=== PATIENT | male | born 1955 | race Caucasian/White ===

== ENCOUNTER 2020-11-09 01:11 | Emergency (ER) | payer MEDICARE ==
[2020-11-09 01:29] VITALS: RESP 18
[2020-11-09] MEDS ORDERED: ONDANSETRON 4 MG/2 ML VIAL IVP STA (01:36)
[2020-11-09] MEDS ORDERED: SODIUM CHLORIDE 0.9% 1,000 ML IV ONE (01:36)
[2020-11-09] MEDS ORDERED: HYDROmorphone 1 MG/ML 1 ML SYRINGE IVP STA ×2 (01:36→03:43)
[2020-11-09 02:54] LABS: Basophils # (A) 0.1 k/uL (0-0.2); Basophils % (A) 1 %; Eosinophils # (A) 0.2 k/uL (0-0.7); Eosinophils % (A) 2 %; HCT 47.6 % (39.0-53.0); HGB 15.7 gm/dL (13.0-17.5); Lymphocytes # (A) 0.8 k/uL (1.0-4.8); Lymphocytes % (A) 9 %; MCH 33.6 pg (25.0-35.0); MCHC 33.1 g/dL (31.0-37.0); MCV 101.5 fL (80.0-100.0); Macrocytosis Slight; Mean Platelet Volume 7.3; Monocytes # (A) 0.4 k/uL (0-1.0); Monocytes % (A) 4 %; Neutrophils # (A) 7.5 k/uL (1.3-7.7); Neutrophils % (A) 84 %; Platelet Count 217 k/uL (150-450); RBC 4.68 m/uL (4.30-5.90); RDW 13.1 % (11.5-15.5); WBC 8.9 k/uL (3.8-10.6)
[2020-11-09 03:08] LABS: ALT 24 U/L (4-49); AST 32 U/L (17-59); African American GFR (CKD) >90 (>60 ml/min/1.73 sqM); Albumin 4.5 g/dL (3.5-5.0); Alkaline Phosphatase 65 U/L (38-126); Anion Gap 9 mmol/L; Blood Urea Nitrogen 14 mg/dL (9-20); Calcium 9.7 mg/dL (8.4-10.2); Carbon Dioxide 24 mmol/L (22-30); Chloride 102 mmol/L (98-107); Glucose 160 mg/dL (74-99); Lipase 205 U/L (23-300); Non-African American GFR(CKD) 86 (>60 ml/min/1.73 sqM); Potassium 4.1 mmol/L (3.5-5.1); Sodium 135 mmol/L (137-145); Total Bilirubin 0.6 mg/dL (0.2-1.3); Total Protein 7.7 g/dL (6.3-8.2)
[2020-11-09 03:15] LABS: Bacteria,Urine Rare /hpf; Mucus,Urine Many /hpf; WBC,Urine 59 /hpf (0-5)
--- NOTE | 2020-11-09 03:16 | CT ---
EXAM: CT Abdomen and Pelvis Without Intravenous Contrast CLINICAL HISTORY: ITS.REASON CT Reason: Right flank pain/hematuria/urinary retention TECHNIQUE: Axial computed tomography images of the abdomen and pelvis without intravenous contrast. CTDI is 13.97 mGy and DLP is 805.1 mGy-cm. This CT exam was performed using one or more of the following dose reduction techniques: automated exposure control, adjustment of the mA and/or kV according to patient size, and/or use of iterative reconstruction technique. COMPARISON: No relevant prior studies available. FINDINGS: Lung bases: Unremarkable. No mass. No consolidation. Mediastinum: 3 cm hiatal hernia. ABDOMEN: Liver: Unremarkable. Gallbladder and bile ducts: Unremarkable. No calcified stones. No ductal dilation. Pancreas: Unremarkable. No ductal dilation. Spleen: Unremarkable. No splenomegaly. Adrenals: Unremarkable. No mass. Kidneys and ureters: There is a 6 x 6.5 cm oval mass versus complex cyst in the mid right kidney. No ureterolithiasis is seen. Several additional 2-3 cm structures are seen with fluid density centrally in both kidneys presumably cysts. Consider contrast-enhanced examination for further characterization. No hydronephrosis. Stomach and bowel: Unremarkable. No obstruction. No mucosal thickening. PELVIS: Appendix: Normal appendix and an unremarkable bowel gas pattern. No acute inflammatory process is seen involving the bowel. Bladder: There is hyperdense material consistent with blood filling the right renal pelvis as well as blood throughout a partially distended urinary bladder which is decompressed by Espinoza catheter. No stones. Reproductive: Unremarkable as visualized. ABDOMEN and PELVIS: Intraperitoneal space: Unremarkable. No free air. No significant fluid collection. Bones/joints: Moderate degenerative changes throughout the lumbar spine. No acute fracture or subluxation is seen. 22 scoliosis. Soft tissues: Unremarkable. Vasculature: Mildly calcified moderate calcified but nondilated abdominal aorta. Lymph nodes: Unremarkable. No enlarged lymph nodes. IMPRESSION: 1. There is hyperdense material consistent with blood filling the right renal pelvis as well as blood throughout a partially distended urinary bladder which is decompressed by Espinoza catheter. 2. There is a 6 x 6.5 cm oval mass versus complex cyst in the mid right kidney. No ureterolithiasis is seen. Several additional 2-3 cm structures are seen with fluid density centrally in both kidneys presumably cysts. Consider contrast-enhanced examination for further characterization.
[2020-11-09 03:20] LABS: Appearance,Urine Turbid (Clear); Color,Urine Red
[2020-11-09 03:20] LABS: Prothrombin Time 10.3 sec (9.0-12.0)
[2020-11-09 03:21] LABS: RBC,Urine >182 /hpf (0-5)
--- NOTE | 2020-11-09 04:04 | ED ---
General Adult HPI - General Chief complaint: Urogenital Stated complaint: Poss Kidney Stone Time Seen by Provider: 11/09/20 01:24 Source: patient, EMS Mode of arrival: EMS Limitations: no limitations - History of Present Illness Initial comments: 65 -year-old male patient presents to the emergency department today for evaluation of urinary retention, right flank pain, hematuria. Patient states that he has been having right flank pain for the last several months. States he thought it was a pulled muscle. States today the pain worsens significantly. States this morning he did have bloody urine, states he did pass a blood clot. States he is now having pain in his suprapubic abdomen and has been unable to urinate since this morning. Denies any fever or chills. States he is having some vomiting and nausea. Denies any constipation or diarrhea. Denies history of urologic surgery. Denies history of kidney stones. Patient denies any recent rash, cough, shortness of breath, chest pain, diarrhea, constipation, numbness, tingling, dizziness, weakness, headache, visual changes, or any other complaints. - Related Data Previous Rx's Medication Instructions Recorded HYDROcodone/APAP 5-325MG [[place] 5] 1 each PO Q6HR PRN #12 tab 11/09/20 Allergies Allergy/AdvReac Type Severity Reaction Status Date / Time No Known Allergies Allergy Verified 11/09/20 01:30 Review of Systems ROS Statement: Those systems with pertinent positive or pertinent negative responses have been documented in the HPI. ROS Other: All systems not noted in ROS Statement are negative. Past Medical History Additional Past Medical History / Comment(s): brain aneurysm History of Any Multi-Drug Resistant Organisms: None Reported Past Surgical History: Unable to Obtain Past Psychological History: No Psychological Hx Reported Smoking Status: Current every day smoker Past Alcohol Use History: Daily Past Drug Use History: None Reported General Exam Limitations: no limitations General appearance: alert, in no apparent distress, other (Physical well- developed, well-nourished adult male patient in mild distress related to pain. Vital signs upon presentation are temperature 97.7F, pulse 74, respirations 18, blood pressure 155/97, pulse ox 99% on room air.) ENT exam: Present: normal exam, normal oropharynx, mucous membranes moist Respiratory exam: Present: normal lung sounds bilaterally. Absent: respiratory distress, wheezes, rales, rhonchi, stridor Cardiovascular Exam: Present: regular rate, normal rhythm, normal heart sounds. Absent: systolic murmur, diastolic murmur, rubs, gallop, clicks GI/Abdominal exam: Present: soft, tenderness (suprapubic), normal bowel sounds. Absent: distended, guarding, rebound, rigid Back exam: Present: normal inspection, CVA tenderness (R). Absent: CVA tenderness (L) Neurological exam: Present: alert, oriented X3, CN II-XII intact Psychiatric exam: Present: normal affect, normal mood Skin exam: Present: warm, dry, intact, normal color. Absent: rash Course Vital Signs 11/09/20 11/09/20 01:25 04:05 Temperature 97.7 F Pulse Rate 74 82 Respiratory 18 18 Rate Blood Pressure 155/97 150/107 O2 Sat by Pulse 99 98 Oximetry Medical Decision Making - Medical Decision Making 65 year-old male patient presents to the emergency department for evaluation of hematuria, urinary retention, and right flank pain. Flank pain for months. Hematuria and urinary retention since this morning. Physical examination revealed right CVA tenderness and suprapubic tenderness. Espinoza catheter was inserted after bladder scan showed 150 mL of fluid. He had output around 800 milliliters of grossly bloody urine. Labs were obtained, hemoglobin normal. A CT abdomen and pelvis without contrast was obtained and showed a 6 x 6.5 cm complex cyst versus mass in the right kidney. He had other multiple 2-3 cm cyst and bilateral kidneys. Patient was given IV fluids, pain medication, nausea medication. Upon re-evaluation he does report improvement in symptoms. Espinoza cathter is draining. He will be discharged to follow up with the urologist for evaluation as soon as possible. Instructed to follow up with the primary care physician for recheck in 1-2 days. Return parameters discussed in detail. He verbalizes understanding and agrees with this plan. Case discussed with my attending Dr. Ferrer. - Lab Data Result diagrams: 11/09/20 02:42 11/09/20 02:42 Lab Results 11/09/20 11/09/20 11/09/20 Range/Units 02:27 02:42 02:42 WBC 8.9 (3.8-10.6) k/uL RBC 4.68 (4.30-5.90) m/uL Hgb 15.7 (13.0-17.5) gm/dL Hct 47.6 (39.0-53.0) % MCV 101.5 H (80.0-100.0) fL MCH 33.6 (25.0-35.0) pg MCHC 33.1 (31.0-37.0) g/dL RDW 13.1 (11.5-15.5) % Plt Count 217 (150-450) k/uL MPV 7.3 Neutrophils % 84 % Lymphocytes % 9 % Monocytes % 4 % Eosinophils % 2 % Basophils % 1 % Neutrophils # 7.5 (1.3-7.7) k/uL Lymphocytes # 0.8 L (1.0-4.8) k/uL Monocytes # 0.4 (0-1.0) k/uL Eosinophils # 0.2 (0-0.7) k/uL Basophils # 0.1 (0-0.2) k/uL Macrocytosis Slight PT (9.0-12.0) sec INR (<1.2) APTT (22.0-30.0) sec Sodium 135 L (137-145) mmol/L Potassium 4.1 (3.5-5.1) mmol/L Chloride 102 (98-107) mmol/L Carbon Dioxide 24 (22-30) mmol/L Anion Gap 9 mmol/L BUN 14 (9-20) mg/dL Creatinine 0.92 (0.66-1.25) mg/dL Est GFR (CKD-EPI)AfAm >90 (>60 ml/min/1.73 sqM) Est GFR (CKD-EPI)NonAf 86 (>60 ml/min/1.73 sqM) Glucose 160 H (74-99) mg/dL Calcium 9.7 (8.4-10.2) mg/dL Total Bilirubin 0.6 (0.2-1.3) mg/dL AST 32 (17-59) U/L ALT 24 (4-49) U/L Alkaline Phosphatase 65 (38-126) U/L Total Protein 7.7 (6.3-8.2) g/dL Albumin 4.5 (3.5-5.0) g/dL Lipase 205 (23-300) U/L Urine Color Red Urine Appearance Turbid (Clear) Urine RBC >182 H (0-5) /hpf Urine WBC 59 H (0-5) /hpf Urine Bacteria Rare H (None) /hpf Urine Mucus Many H (None) /hpf 11/09/20 Range/Units 02:42 WBC (3.8-10.6) k/uL RBC (4.30-5.90) m/uL Hgb (13.0-17.5) gm/dL Hct (39.0-53.0) % MCV (80.0-100.0) fL MCH (25.0-35.0) pg MCHC (31.0-37.0) g/dL RDW (11.5-15.5) % Plt Count (150-450) k/uL MPV Neutrophils % % Lymphocytes % % Monocytes % % Eosinophils % % Basophils % % Neutrophils # (1.3-7.7) k/uL Lymphocytes # (1.0-4.8) k/uL Monocytes # (0-1.0) k/uL Eosinophils # (0-0.7) k/uL Basophils # (0-0.2) k/uL Macrocytosis PT 10.3 (9.0-12.0) sec INR 1.0 (<1.2) APTT 18.0 L (22.0-30.0) sec Sodium (137-145) mmol/L Potassium (3.5-5.1) mmol/L Chloride (98-107) mmol/L Carbon Dioxide (22-30) mmol/L Anion Gap mmol/L BUN (9-20) mg/dL Creatinine (0.66-1.25) mg/dL Est GFR (CKD-EPI)AfAm (>60 ml/min/1.73 sqM) Est GFR (CKD-EPI)NonAf (>60 ml/min/1.73 sqM) Glucose (74-99) mg/dL Calcium (8.4-10.2) mg/dL Total Bilirubin (0.2-1.3) mg/dL AST (17-59) U/L ALT (4-49) U/L Alkaline Phosphatase (38-126) U/L Total Protein (6.3-8.2) g/dL Albumin (3.5-5.0) g/dL Lipase (23-300) U/L Urine Color Urine Appearance (Clear) Urine RBC (0-5) /hpf Urine WBC (0-5) /hpf Urine Bacteria (None) /hpf Urine Mucus (None) /hpf - Radiology Data Radiology results: report reviewed, image reviewed Disposition Clinical Impression: Right kidney mass, Hematuria, Urinary retention Disposition: HOME SELF-CARE Condition: Good Instructions (If sedation given, give patient instructions): Urinary Retention in Men (ED), Espinoza Catheter Placement and Care (ED), Hematuria (ED) Additional Instructions: Increase fluids. Do not take aspirin or ibuprofen. Follow-up with urologist for further evaluation as soon as possible call first thing in the morning for an appointment. Return for any new, worsening, or concerning symptoms. Prescriptions: HYDROcodone/APAP 5-325MG [[place] 5] 1 each PO Q6HR PRN #12 tab PRN Reason: Pain Is patient prescribed a controlled substance at d/c from ED?: No Referrals: Gabriela Gaines MD [Primary Care Provider] - 1-2 days Indio Yu MD [STAFF PHYSICIAN] - 1-2 days Time of Disposition: 04:46
[2020-11-09] MEDS ORDERED: ACET/COD 300 MG/30 MG STARTER PACK 6 TAB BTL PO STA (04:46)
[2020-11-09 06:30] VITALS: BP 151/98; PULSE 85; TEMP 98
== END 2020-11-09 05:58 | disposition home or self-care (01) ==
LOC: EC 01:11
DX: N28.89 Other specified disorders of kidney and ureter (principal); F17.200 Nicotine dependence, unspecified, uncomplicated
CPT/HCPCS: 36415; 80053; 83690; 85025; 85610; 85730; 81001; 87086; 74176; 99284; 96374; 96375; 96376; 96361; J2405; J1170

== ENCOUNTER 2020-11-10 11:41 | Emergency (ER) | payer MEDICARE ==
[2020-11-10 11:47] VITALS: TEMP 98.2
--- NOTE | 2020-11-10 12:17 | ED ---
General Adult HPI - General Chief complaint: Urogenital Stated complaint: revisit - blood in urine Time Seen by Provider: 11/10/20 11:45 Source: patient, RN notes reviewed, old records reviewed Mode of arrival: ambulatory Limitations: no limitations - History of Present Illness Initial comments: This is a 65-year-old male who presents emergency Department complaining that he feels like he has to urinate but is unable to. Patient states he came in yesterday because he has had blood in his urine and he was having right flank pain for the last few months. Patient had a catheter placed yesterday but he states this morning stopped producing any urine and the pain began and has gotten progressively worse. Patient states he has pain in the suprapubic region. Patient denies any fever chills. Patient denies any other symptoms at this time. - Related Data Home Medications Medication Instructions Recorded Confirmed HYDROcodone/APAP 5-325MG [[place] 5] 1 tab PO Q6HR PRN 11/10/20 11/10/20 Allergies Allergy/AdvReac Type Severity Reaction Status Date / Time No Known Allergies Allergy Verified 11/10/20 12:22 Review of Systems ROS Statement: Those systems with pertinent positive or pertinent negative responses have been documented in the HPI. ROS Other: All systems not noted in ROS Statement are negative. Past Medical History Additional Past Medical History / Comment(s): brain aneurysm , kidney mass ,sepsis History of Any Multi-Drug Resistant Organisms: None Reported Past Surgical History: Orthopedic Surgery Past Psychological History: No Psychological Hx Reported Smoking Status: Current every day smoker Past Alcohol Use History: Daily Past Drug Use History: None Reported General Exam - General Exam Comments Initial Comments: GENERAL: Patient is well-developed and well-nourished. Patient is nontoxic and well- hydrated and is in moderate distress. ENT: Neck is soft and supple. No significant lymphadenopathy is noted. Oropharynx is clear. Moist mucous membranes. Neck has full range of motion without eliciting any pain. EYES: The sclera were anicteric and conjunctiva were pink and moist. Extraocular movements were intact and pupils were equal round and reactive to light. Eyelids were unremarkable. PULMONARY: Unlabored respirations. Good breath sounds bilaterally. No audible rales rhonchi or wheezing was noted. CARDIOVASCULAR: There is a regular rate and rhythm without any murmurs gallops or rubs. ABDOMEN: Soft and nontender with normal bowel sounds. SKIN: Skin is clear with no lesions or rashes and otherwise unremarkable. NEUROLOGIC: Patient is alert and oriented x3. Cranial nerves II through XII are grossly intact. Motor and sensory are also intact. Normal speech, volume and content. Symmetrical smile. MUSCULOSKELETAL: Normal extremities with adequate strength and full range of motion. LYMPHATICS: No significant lymphadenopathy is noted PSYCHIATRIC: Normal psychiatric evaluation. Limitations: no limitations Course Vital Signs 11/10/20 11:43 Temperature 98.2 F Pulse Rate 96 Respiratory 20 Rate Blood Pressure 144/67 O2 Sat by Pulse 95 Oximetry Medical Decision Making - Medical Decision Making Catheter was irrigated and clots came on the patient was able to have good urinary flow. At this point and the patient refuses any lab work or IV. I spoke with because because want to see the patient in the office tomorrow. Patient is aware patient states a follow-up tomorrow. Disposition Clinical Impression: Urinary retention, Hematuria, Kidney mass Disposition: HOME SELF-CARE Is patient prescribed a controlled substance at d/c from ED?: No Referrals: Indio Yu MD [STAFF PHYSICIAN] - 11/11/20 Time of Disposition: 12:46
[2020-11-10 12:57] VITALS: BP 157/78; PULSE 78; RESP 16
== END 2020-11-10 12:56 | disposition home or self-care (01) ==
LOC: EC 11:41
DX: N28.89 Other specified disorders of kidney and ureter (principal); F17.200 Nicotine dependence, unspecified, uncomplicated
CPT/HCPCS: 99283

== ENCOUNTER → 2020-11-19 | Outpatient (CLI) | payer MEDICARE ==
--- NOTE | 2020-11-19 14:39 | CT ---
EXAMINATION TYPE: CT abdomen pelvis wo/w con DATE OF EXAM: 11/19/2020 COMPARISON: 11/09/2020 HISTORY: Hematuria, Rt sided renal mass CT DLP: 2772 mGycm Automated exposure control for dose reduction was used. CONTRAST: Performed without and with IV Contrast, patient injected with 100 mL of Isovue 300. Images obtained from the diaphragm to the floor the pelvis without and with IV contrast. There is ora l contrast. FINDINGS: Lung bases are clear. There is no pleural effusion. Heart size is normal. There is no pericardial eff usion. Liver spleen stomach pancreas gallbladder appear normal. The bile ducts are not dilated. There is no adrenal mass. There is a rounded 6.3 cm sharply marginated mass involving the anterior upper pole right kidney. Thi s has mixed attenuation and shows mild enhancement with contrast. The lateral aspect of the mass has lower attenuation and could be partly cystic. There is 2.5 cm simple cortical cyst at the upper pole right kidney. There is 3.3 cm cortical cyst lateral left kidney. There is no hydronephrosis. Ureters are not dilated. Delayed images show normal renal excretion. There is no retroperitoneal adenopathy. The bladder distends smoothly. There is no inguinal hernia. There is no free fluid in the pelvis. I s ee no pelvic mass. There is normal enhancement of the inferior vena cava and the renal veins. The lumbar vertebra have n ormal alignment. There is multilevel mild vacuum disc. There is no compression fracture. The bony pel vis appears intact. The hip joints are intact. There is no mesenteric edema. There is no ascites or free air. There is no bowel obstruction. There i s no evidence of appendicitis. Appendix appears normal and is medial. IMPRESSION: Sharply marginated rounded enhancing predominantly solid right renal mass suggestive of primary renal tumor. Mass not changed in size compared to old exam. Follow-up recommended.
== END | disposition home or self-care (01) ==
LOC: RADCTMAIN 10:40
PROVIDERS: ATTEND Urology
DX: N28.89 Other specified disorders of kidney and ureter (principal)
CPT/HCPCS: 74178; Q9967

== ENCOUNTER → 2020-12-15 | Outpatient (CLI) | payer MEDICARE ==
--- NOTE | 2020-12-15 11:39 | XR ---
EXAMINATION TYPE: XR chest 2V DATE OF EXAM: 12/15/2020 COMPARISON: NONE TECHNIQUE: PA and lateral views submitted. HISTORY: Presurgical FINDINGS: The lungs are clear and there is no pneumothorax, pleural effusion, or focal pneumonia. Hyperinflat ion. Hypertrophic and degenerative change of the spine. IMPRESSION: 1. No acute process.
[2020-12-15 11:43] LABS: Basophils # (A) 0.1 k/uL (0-0.2); Basophils % (A) 1 %; Eosinophils # (A) 0.2 k/uL (0-0.7); Eosinophils % (A) 3 %; HCT 50.1 % (39.0-53.0); Lymphocytes # (A) 1.1 k/uL (1.0-4.8); Lymphocytes % (A) 20 %; MCH 33.2 pg (25.0-35.0); MCHC 31.9 g/dL (31.0-37.0); MCV 104.1 fL (80.0-100.0); Macrocytosis Slight; Monocytes # (A) 0.4 k/uL (0-1.0); Monocytes % (A) 7 %; Neutrophils # (A) 3.8 k/uL (1.3-7.7); Neutrophils % (A) 68 %; Platelet Count 199 k/uL (150-450); RBC 4.81 m/uL (4.30-5.90); RDW 13.8 % (11.5-15.5); WBC 5.6 k/uL (3.8-10.6)
[2020-12-15 11:58] LABS: Appearance,Urine Clear (Clear); Bilirubin,Urine Negative (Negative); Blood,Urine Negative (Negative); Color,Urine Colorless; Glucose,Urine (UA) Negative (Negative); Ketones,Urine Negative (Negative); Leukocyte Esterase,Urine Negative (Negative); Nitrite,Urine Negative (Negative); Protein,Urine Negative (Negative); Specific Gravity,Urine 1.001 (1.001-1.035); Urobilinogen,Urine <2.0 mg/dL (<2.0)
[2020-12-15 11:59] LABS: ALT 22 U/L (4-49); AST 36 U/L (17-59); African American GFR (CKD) >90 (>60 ml/min/1.73 sqM); Alkaline Phosphatase 68 U/L (38-126); Anion Gap 11 mmol/L; Blood Urea Nitrogen 9 mg/dL (9-20); Calcium 10.1 mg/dL (8.4-10.2); Carbon Dioxide 24 mmol/L (22-30); Chloride 105 mmol/L (98-107); Glucose 81 mg/dL (74-99); Non-African American GFR(CKD) >90 (>60 ml/min/1.73 sqM); Potassium 4.4 mmol/L (3.5-5.1); Sodium 140 mmol/L (137-145); Total Bilirubin 1.1 mg/dL (0.2-1.3); Total Protein 8.2 g/dL (6.3-8.2)
== END | disposition home or self-care (01) ==
LOC: LABPAT 10:22
PROVIDERS: ATTEND Urology
DX: Z01.818 Encounter for other preprocedural examination (principal); D41.01 Neoplasm of uncertain behavior of right kidney; R53.83 Other fatigue
CPT/HCPCS: 36415; 71046; 80053; 81003; 85025; 87086; 93005

== ENCOUNTER 2020-12-22 06:57 | Inpatient (IN) | payer MEDICARE ==
[2020-12-20 10:44] VITALS: BMI 24.4
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
[~2020-12-22 06:57] MED LIST: DEXAMETHASONE SOD PHOSPHATE 4 MG/ML 1 ML VIAL IV ONE
[2020-12-22] MEDS ORDERED: HYDROmorphone 0.5 MG/0.5 ML SYRINGE IVP PRN (07:00)
[2020-12-22] MEDS ORDERED: FAMOTIDINE 20 MG/2 ML VIAL IV PRN (07:00)
[2020-12-22] MEDS: LACTATED RINGERS 1,000 ML IV SCH ×3 (08:00→08:29)
[2020-12-22] MEDS ORDERED: MIDAZOLAM 2 MG/2 ML VIAL IVP ONE (08:14)
[2020-12-22] MEDS ORDERED: ROCURONIUM 10 MG/ML (5 ML VIAL) IV ONE (08:20)
[2020-12-22] MEDS ORDERED: WATER FOR INJECTION, STERILE 10 ML VIAL IV ONE (08:20)
[2020-12-22] MEDS ORDERED: LIDOCAINE 1% INJ 10MG/ML (20 ML MDV) ONE (08:20)
[2020-12-22] MEDS ORDERED: NEOSTIGMINE 1 MG/ML 10 ML VIAL ONE (08:20)
[2020-12-22] MEDS ORDERED: PROPOFOL 10 MG/ML 20 ML VIAL IV ONE (08:20)
[2020-12-22] MEDS ORDERED: MIDAZOLAM 2 MG/2 ML VIAL ONE (08:20)
[2020-12-22] MEDS ORDERED: fentaNYL (PF) 50 MCG/ML 2 ML AMP ONE (08:20)
[2020-12-22] MEDS ORDERED: HYDROmorphone (PF) 1 MG/ML ONE (08:20)
[2020-12-22] MEDS ORDERED: SUCCINYLCHOLINE CHLORIDE 100 MG/5 ML SYR IV ONE (08:20)
[2020-12-22] MEDS ORDERED: GLYCOPYRROLATE 0.2 MG/ML 2 ML VIAL ONE (08:20)
[2020-12-22] MEDS ORDERED: ePHEDrine SULFATE/0.9% NACL/PF 50 MG/5 ML SYRINGE IV ONE (08:20)
[2020-12-22] MEDS: ONDANSETRON 4 MG/2 ML VIAL IVP ONE ×2 (08:23→14:08)
[2020-12-22] MEDS ORDERED: ROPIVACAINE 250 MG, HYDROMORPHONE (PF) 5 MG in SODIUM CHLORIDE 0.9% 200 ML EPIDURAL PRN (09:27)
[2020-12-22] MEDS ORDERED: NALOXONE 0.4 MG/ML 1 ML VIAL IV PRN (09:27)
[2020-12-22] MEDS ORDERED: LACTATED RINGERS 1,000 ML IV ONE (10:23)
--- NOTE | 2020-12-22 10:24 | P.ANPRN ---
Procedure Note - Anesthesia - Epidural/Spinal Epidural Continuous Time Out Performed: Yes Date of Procedure: 12/22/20 Procedure Start Time: :13 Procedure Stop Time: : Location of Patient: PreOp Indication: Acute Post-Operative Pain, Requested by Surgeon Sedation Type: Sedate with meaningful contact maintained Preparation: Sterile Dressing Position: Sitting Catheter: Indwelling Needle Guage: 18 Injectate: Test Dose Lidocaine1.5% w/1:200,000 epi Blood Aspirated: No Pain Paresthesia on Injection Noted: No Events: Uneventful and Well Tolerated (test dose given with no adverse reaction)
--- NOTE | 2020-12-22 10:55 | P.OP ---
Date of Procedure: 12/22/20 Preoperative Diagnosis: Right renal mass, right renal carcinoma Postoperative Diagnosis: Same Procedure(s) Performed: Right radical nephrectomy Anesthesia: GETA, epidural Surgeon: Nicholas Lynn Molder Fitting #1: Eron Razo Estimated Blood Loss (ml): 100 Pathology: other (Kidney) Condition: stable Disposition: PACU Indications for Procedure: The patient is 65. He presented [facility] emergency room with gross hematuria. Computed tomography scan showed a mass. He was sent to me. The mass was reviewed and found to be a solid mass in his right kidney. He is deep into the parenchyma. We discussed treatment options. He comes for a right radical nephrectomy left kidney appears to be good. His kidney function is normal Description of Procedure: Patient is brought to the operating suite. He is given a general endotracheal anesthesia proceeded by an epidural for perioperative pain control. Espinoza catheters introduced sterilely. He is prepped and draped sterilely. A right subcostal incision is made. I dissect down to the rectus and oblique fascias. The peritoneum was opened. The liver and omentum are inspected and are normal. The traction is created with the Bookwalter retractor. The colon is reflected medially. I then do a Dulce maneuver and reflect the duodenum medially. We retraction is created. Identify the gonadal vein which is taken between 2-0 silk ties. I identified the vena cava and March superiorly reflecting connective tissue off until I identified the renal vein. Then identify the renal artery and its one posterior branch and place a 2-0 silk ties around it. I then free the right renal vein up and placed 2-0 silk ties around it. I doubly ligate the proximal distal aspects. I then transect the renal vein. This allows me to approach the renal artery on the right side more appropriately. I then doubly ligate proximally and distally both the main artery and the posterior branch. I then transected. I then dissect the connective and lymph node tissue off the vena cava and reflect it with the kidney specimen. In September inferiorly and re-clamp the gonadal vein and then transected. I then clamped the ureter and transected. I then dissect posteriorly and elevated troponin's fascia off the posterior peritoneum as I marched laterally. I then moved superiorly above the right renal hilum and Hemoclip any tissue or adrenal veins off the cava a. In September inferiorly to the adrenal gland it is visually normal on computed tomography scan. I used hemoclips to control any bleeding. I then dissect the knee and tumor off the peritoneum taking a small amount of peritoneum as the tumor is stuck to it superiorly. Liver the kidney from the wound Bleeding was controlled with electrocautery and some suturing. There is no active bleeding for several minutes post nephrectomy. I then closed the right upper quadrant in 3 layers of #1 Vicryl the skin is stapled the patient is awake and returned recovery room good condition. Blood loss is approximately 100 mL. The patient tolerated the procedure well be placed in the hospital postoperatively.
[2020-12-22] MEDS ORDERED: fentaNYL (PF) 50 MCG/ML 2 ML AMP INTRATHECA ONE (11:05)
[2020-12-22] MEDS: DEXTROSE 5%-0.45% NACL 1,000 ML IV SCH ×2 (14:47→19:50)
[2020-12-22] MEDS ORDERED: diphenhydrAMINE 50 MG/ML 1 ML VIAL IVP PRN (18:53)
[2020-12-23] MEDS: DEXTROSE 5%-0.45% NACL 1,000 ML IV SCH ×2 (05:11→18:24)
--- NOTE | 2020-12-23 08:11 | P.PN ---
Subjective Progress Note Date: 12/23/20 Principal diagnosis: first post op day from a right radical nephrectomy. Uneventful evening. Pain under control. VSS. U/O good Wound ok, slight old blood lateral corner. Respirations nl, not tacycardic. Non tender abdomen. Stable POD #1 C/w epidural, ivf, clear liquid diet. Objective - Vital Signs Vital signs: Vital Signs Temp 98.9 F 12/23/20 07:27 Pulse 81 12/23/20 07:27 Resp 18 12/23/20 07:27 BP 126/72 12/23/20 07:27 Pulse Ox 96 12/23/20 07:27 Intake & Output 12/22/20 12/23/20 12/23/20 18:59 06:59 18:59 Intake Total 2155 Output Total 425 600 Balance 1730 -600 Weight 93 kg Intake: IV 2155 Output: Urine 325 600 Estimated Blood Loss 100 Other: Voiding Method Indwelling Catheter
--- NOTE | 2020-12-23 10:58 | P.PN ---
Progress Note - Text Progress Note Date: 12/23/20 (0910) Anesthesia Postop day 1 Status post radical nephrectomy with epidural Day 2 Patient seen and examined. Doing well without complaint. VAS 0 out of 10. No nausea vomiting or pruritus. Infusion currently caused. Patient has been picking at the dressing on his back. Pulled catheter out, ripped catheter, removed dressing. Objective: Vital signs reviewed Lungs: Good chest excursion Abdomen: Appears nondistended Other: Epidural Site Intact without induration. Dressing intact Neuro: No apparent motor block. Sensory within normal limits. Assessment: Status post radical nephrectomy postop day 1 Plan: Removed rest of dressing. Nurse notified of disconnected epidural
[2020-12-23] MEDS ORDERED: HYDROmorphone 1 MG/ML 1 ML SYRINGE IVP PRN (11:19)
[2020-12-23 11:20] LABS: HCT 43.8 % (39.0-53.0); MCH 33.2 pg (25.0-35.0); MCHC 31.9 g/dL (31.0-37.0); Macrocytosis Slight; Mean Platelet Volume 6.9; Platelet Count 192 k/uL (150-450); RBC 4.21 m/uL (4.30-5.90); RDW 13.7 % (11.5-15.5); WBC 10.9 k/uL (3.8-10.6)
[2020-12-23 11:37] LABS: African American GFR (CKD) 69 (>60 ml/min/1.73 sqM); Anion Gap 10 mmol/L; Blood Urea Nitrogen 17 mg/dL (9-20); Calcium 9.4 mg/dL (8.4-10.2); Carbon Dioxide 22 mmol/L (22-30); Chloride 102 mmol/L (98-107); Glucose 81 mg/dL (74-99); Non-African American GFR(CKD) 60 (>60 ml/min/1.73 sqM); Potassium 4.5 mmol/L (3.5-5.1); Sodium 134 mmol/L (137-145)
[2020-12-23] MEDS: HYDROcodone/APAP 5-325MG 1 EACH TAB PO PRN ×3 (13:17→23:50)
[2020-12-24] MEDS: DEXTROSE 5%-0.45% NACL 1,000 ML IV SCH ×2 (05:55→19:17)
[2020-12-24] MEDS: HYDROcodone/APAP 5-325MG 1 EACH TAB PO PRN ×3 (08:31→20:42)
--- NOTE | 2020-12-24 17:10 | P.PN ---
Progress Note - Text Progress Note Date: 12/24/20 No acute overnight events, pain is controlled. He is tolerating a diet, ambulating. Has not passed flatus. Abdomen soft and nontender, incision clean dry and intact A/P Postop day #2 status post right radical nephrectomy -Pain control -Discontinued Espinoza -Ambulate -Advance diet as tolerated
[2020-12-25] MEDS: DEXTROSE 5%-0.45% NACL 1,000 ML IV SCH ×2 (01:52→09:19)
[2020-12-25 07:23] VITALS: BP 146/92; PULSE 74; RESP 18; TEMP 98.8
--- NOTE | 2020-12-25 11:45 | P.DS ---
Providers Date of admission: 12/22/20 06:57 Attending physician: Nicholas Lynn Primary care physician: Gabriela Gaines [facility] Course: This is a 65-year-old male with history of right renal mass. He underwent open radical nephrectomy on December 22, please see op note dated 12/22 for surgery detail. He was admitted to the floor postoperatively. He accidentally discontinued his epidural on postop day #1, but his pain was controlled. His Espinoza catheter was removed on postoperative day #2. He was subsequently discharged home on postop day #3, at time of discharge was tolerating a diet, ambulating, pain well controlled. His abdominal exam was benign, and his in cision was clean dry and intact Plan - Discharge Summary Discharge Rx Participant: Yes New Discharge Prescriptions: New HYDROcodone/APAP 5-325MG [Embudo 5-325] 1 tab PO Q6HR PRN 3 Days #12 tab PRN Reason: Pain Discharge Medication List HYDROcodone/APAP 5-325MG [Embudo 5-325] 1 tab PO Q6HR PRN 3 Days #12 tab 12/25/20 [Rx] Patient Instructions/Handouts: Nephrectomy (DC) Activity/Diet/Wound Care/Special Instructions: No heavy lifting or straining You may shower, no baths If there is no drainage from your incision, you don't have to apply dressing Discharge Disposition: HOME SELF-CARE
== END 2020-12-25 12:19 | disposition home or self-care (01) | DRG 658 ==
LOC: 2ORMAIN 06:57 → 4SSUR 13:27
PROVIDERS: ADMIT Urology; ATTEND Urology
PROC: 0TT00ZZ Resection of Right Kidney, Open Approach (ICD-10-PCS; principal; 2020-12-22 08:30)
DX: C64.1 Malignant neoplasm of right kidney, except renal pelvis (principal); F17.200 Nicotine dependence, unspecified, uncomplicated; R31.0 Gross hematuria; I67.1 Cerebral aneurysm, nonruptured; G47.30 Sleep apnea, unspecified
CPT/HCPCS: 80048; 85027; 86850; 86900; 86901; 88307

== ENCOUNTER → 2021-10-28 | Outpatient (CLI) | payer MEDICARE ==
--- NOTE | 2021-10-28 10:13 | CT ---
EXAMINATION TYPE: CT chest wo con DATE OF EXAM: 10/28/2021 COMPARISON: CT abdomen pelvis 10/14/2021 HISTORY: Pulmonary nodule. Malignant neoplasm of right kidney CT DLP: 689 mGycm. Automated Exposure Control for Dose Reduction was Utilized. TECHNIQUE: CT scan of the thorax is performed without IV contrast. FINDINGS: Lack of intravenous contrast could compromise sensitivity. There are coronary artery calcifications present. Small hiatal hernia suspected. LUNGS: The lungs are grossly clear, there is no concerning parenchymal mass or nodule identified. C entrilobular emphysematous changes are present. There is no pleural effusion or pneumothorax seen. T he tracheobronchial tree is patent. MEDIASTINUM: Lack of IV contrast is noted to limit evaluation for mediastinal and especially hilar ad enopathy. There are no definitive greater than 1 cm hilar or mediastinal lymph nodes. No cardiomega ly or pericardial effusion is seen. OTHER: Post right nephrectomy changes noted. Probable cystic foci associated with the left kidney. Hicks spect a spinal curvature is present. IMPRESSION: Postop changes. No suspicious lung nodule.
== END | disposition home or self-care (01) ==
LOC: RADCTMAIN 08:31
PROVIDERS: ATTEND Urology
DX: C64.1 Malignant neoplasm of right kidney, except renal pelvis (principal)
CPT/HCPCS: 71250

== ENCOUNTER 2023-09-20 19:41 | Inpatient (IN) | payer MEDICARE ==
[2023-09-20 20:15] LABS: Basophils # (A) 0.1 k/uL (0-0.2); Basophils % (A) 1 %; Eosinophils # (A) 0.4 k/uL (0-0.7); Eosinophils % (A) 6 %; HCT 46.5 % (39.0-53.0); Lymphocytes # (A) 1.2 k/uL (1.0-4.8); Lymphocytes % (A) 18 %; MCH 34.1 pg (25.0-35.0); MCHC 34.3 g/dL (31.0-37.0); MCV 99.2 fL (80.0-100.0); Mean Platelet Volume 7.2; Monocytes # (A) 0.5 k/uL (0-1.0); Monocytes % (A) 8 %; Neutrophils # (A) 4.2 k/uL (1.3-7.7); Neutrophils % (A) 65 %; Platelet Count 236 k/uL (150-450); RBC 4.69 m/uL (4.30-5.90); RDW 12.3 % (11.5-15.5); WBC 6.5 k/uL (3.8-10.6)
--- NOTE | 2023-09-20 20:25 | CT ---
EXAM: CT Head Without Intravenous Contrast CLINICAL HISTORY: ITS.REASON CT Reason: Neuro deficit, acute, stroke suspected TECHNIQUE: Axial computed tomography images of the head/brain without intravenous contrast. CTDI is 49.1 mGy and DLP is 1142.6 mGy-cm. This CT exam was performed using one or more of the following dose reduction techniques: automated exposure control, adjustment of the mA and/or kV according to patient size, and/or use of iterative reconstruction technique. COMPARISON: No relevant prior studies available. FINDINGS: Brain: No intracranial hemorrhage. Chronic infarcts in the right hemisphere. Status post MCA aneurysm coiling on the right. Global parenchymal atrophy. Ventricles: Unremarkable. Bones/joints: Chronic appearing fracture deformities of the nasal bone. Soft tissues: Unremarkable. Sinuses: No acute sinusitis. Mastoid air cells: Unremarkable as visualized. IMPRESSION: 1. No acute intracranial abnormality.
[2023-09-20] MEDS: SODIUM CHLORIDE 0.9% 1,000 ML IV STA (20:28)
[2023-09-20 20:30] LABS: Prothrombin Time 10.9 sec (10.0-12.5)
[2023-09-20 20:37] LABS: Partial Thromboplastin Time 21.6 sec (22.0-30.0)
[2023-09-20 20:41] LABS: ALT 89 U/L (4-49); AST 72 U/L (17-59); African American GFR (CKD) 88 (>60 ml/min/1.73 sqM); Albumin 4.8 g/dL (3.5-5.0); Alcohol <10 mg/dL; Alkaline Phosphatase 176 U/L (38-126); Anion Gap 11 mmol/L; Blood Urea Nitrogen 9 mg/dL (9-20); Calcium 9.8 mg/dL (8.4-10.2); Carbon Dioxide 24 mmol/L (22-30); Chloride 94 mmol/L (98-107); Creatine Kinase 64 U/L (55-170); Glucose 74 mg/dL (74-99); Non-African American GFR(CKD) 76 (>60 ml/min/1.73 sqM); Potassium 4.4 mmol/L (3.5-5.1); Sodium 129 mmol/L (137-145); Total Bilirubin 0.9 mg/dL (0.2-1.3); Total Protein 8.3 g/dL (6.3-8.2)
--- NOTE | 2023-09-20 20:57 | CT ---
EXAM: CT Angiography Head With Intravenous Contrast CLINICAL HISTORY: ITS.REASON CT Reason: Neuro deficit, acute, stroke suspected TECHNIQUE: Axial computed tomographic angiography images of the head with intravenous contrast. CTDI is 10.7 mGy and DLP is 519 mGy-cm. This CT exam was performed using one or more of the following dose reduction techniques: automated exposure control, adjustment of the mA and/or kV according to patient size, and/or use of iterative reconstruction technique. MIP reconstructed images were created and reviewed. COMPARISON: No relevant prior studies available. FINDINGS: Right internal carotid artery: No acute findings. Intracranial segment is patent with no significant stenosis. No aneurysm. Right anterior cerebral artery: Unremarkable. No occlusion or significant stenosis. No aneurysm. Right middle cerebral artery: Status post distal right MCA aneurysm coiling. Artifact limits evaluation of this area. No occlusion or significant stenosis. Right posterior cerebral artery: Unremarkable. No occlusion or significant stenosis. No aneurysm. Right vertebral artery: Right vertebral artery terminates in PICA. Left internal carotid artery: No acute findings. Intracranial segment is patent with no significant stenosis. No aneurysm. Left anterior cerebral artery: Unremarkable. No occlusion or significant stenosis. No aneurysm. Left middle cerebral artery: Unremarkable. No occlusion or significant stenosis. No aneurysm. Left posterior cerebral artery: Unremarkable. No occlusion or significant stenosis. No aneurysm. Left vertebral artery: Unremarkable as visualized. Basilar artery: Unremarkable. No occlusion or significant stenosis. No aneurysm. IMPRESSION: No acute findings in the arteries of the head/brain. EXAM: CT Angiography Neck With Intravenous Contrast CLINICAL HISTORY: ITS.REASON CT Reason: Neuro deficit, acute, stroke suspected TECHNIQUE: Routine carotid CT angiography protocol was performed with intravenous contrast. NASCET criteria using the distal ICAs for comparison were used for evaluation of stenoses. CTDI is 10.7 mGy and DLP is 519 mGy-cm. This CT exam was performed using one or more of the following dose reduction techniques: automated exposure control, adjustment of the mA and/or kV according to patient size, and/or use of iterative reconstruction technique. MIP reconstructed images were created and reviewed. COMPARISON: None. FINDINGS: VASCULATURE: Right common carotid artery: Unremarkable. No occlusion or significant stenosis. No dissection. Right internal carotid artery: Atherosclerotic calcifications within the right ICA causing less than 50% stenosis. No dissection. Right vertebral artery: Unremarkable. No occlusion or significant stenosis. No dissection. Left common carotid artery: Unremarkable. No occlusion or significant stenosis. No dissection. Left internal carotid artery: Unremarkable. Extracranial segment is patent with no occlusion or significant stenosis. No dissection. Left vertebral artery: Unremarkable. No occlusion or significant stenosis. No dissection. NECK: Bones/joints: Moderate to severe degenerative spondylosis in the cervical spine. No acute fracture. Soft tissues: Unremarkable. Lung apices: Bronchial plugging and centrilobular groundglass in the right upper lobe. CAROTID STENOSIS REFERENCE USING NASCET CRITERIA: % ICA stenosis = (1 - narrowest ICA diameter/diameter of distal cervical ICA) x 100. Mild - <50% stenosis. Moderate - 50-69% stenosis. Severe - 70-94% stenosis. Near occlusion - 95-99% stenosis. Occluded - 100% stenosis. IMPRESSION: No acute findings in the arteries of the neck.
[2023-09-20] MEDS: ONDANSETRON 4 MG/2 ML VIAL IVP STA (21:16)
[2023-09-20] MEDS: ACETAMINOPHEN TAB 500 MG TAB PO STA (21:21)
--- NOTE | 2023-09-20 21:26 | XR ---
EXAM: XR chest 1V portable CLINICAL INDICATION:Male, 68 years old with history of altered mental status; [facility] COMPARISON: 2 view chest 10/14/2021 TECHNIQUE: Chest single view. FINDINGS: Lines/tubes/devices: EKG leads overlie the chest. No indwelling lines are seen. Cardiomediastinum: Cardiac silhouette appears normal in size. Partially calcified aorta. Incidental silhouette appears within normal limits. Vasculature: No increased pulmonary vasculature. Lungs/pleura: Mild diffuse interstitial coarsening and hyperinflation again noted, likely chronic lung changes. No acute consolidation, pleural effusion, or pneumothorax. No sizable pulmonary nodules detected; if nod ules are of concern, recommend correlation with findings of outpatient CT chest. Bones/soft tissues: No acute osseous pathology visualized. Mild degenerative changes of the spine with apex right curvatu re in the mid to inferior thoracic region. There are possibly some vascular calcifications in the rig ht neck. Regional soft tissues appear unremarkable for acute process. IMPRESSION: Overall stable exam, without evidence of acute cardiopulmonary disease.
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
[2023-09-20] MEDS: SODIUM CHLORIDE 0.9% 1,000 ML IV SCH (23:47)
[2023-09-20] MEDS: ASPIRIN 325 MG TAB PO STA (23:47)
[2023-09-21 08:43] LABS: Chol/HDL Ratio 2.41 Ratio; LDL Cholesterol,Calculated 78.7 mg/dL (0.0-131.0)
[2023-09-21] MEDS: CLOPIDOGREL 75 MG TAB PO SCH (09:28)
[2023-09-21] MEDS: ASPIRIN 325 MG TAB PO SCH (09:28)
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
[2023-09-21] MEDS: NICOTINE 21MG/24HR PATCH TRANSDERM SCH (14:59)
[2023-09-21] MEDS: HEPARIN SODIUM,PORCINE 5,000 UNIT/ML 1 ML VIAL SQ SCH (15:07)
[2023-09-21] MEDS: THIAMINE 100 MG TAB PO SCH (15:08)
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
--- NOTE | 2023-09-21 18:02 | CA ---
Transthoracic Echo Report Name: Yadiel Escamilla Age: 68 Gender: M : 1955 Exam Date: 09/21/2023 11:38 Exam Location: [facility] Ht (in): 70 Wt (lb): 180 Ordering Physician: Demarcus Jeffery MD Attending/Referring Phys: Physical Therapy Instructor John Carlos RDCS Procedure CPT: Indications: CVA Cardiac Hx: Technical Quality: Very technically difficult study Contrast 1: Definity Total Dose (mL): 3 Contrast 2: Total Dose (mL): MEASUREMENTS (Male / Female) Normal Values DOPPLER AV Peak Velocity 104.2 cm/s AV Peak Gradient 4.3 mmHg AV Mean Velocity 71.7 cm/s AV Mean Gradient 2.2 mmHg AV Velocity Time Integral 19.5 cm LVOT Peak Velocity 47.0 cm/s LVOT Peak Gradient 0.9 mmHg LVOT Velocity Time Integral 19.9 cm MV Area PHT 3.8 cm??? Mitral E Point Velocity 50.1 cm/s Mitral A Point Velocity 74.0 cm/s Mitral E to A Ratio 0.7 MV Deceleration Time 199.6 ms PV Peak Velocity 99.1 cm/s PV Peak Gradient 3.9 mmHg FINDINGS Left Ventricle By apical views Left ventricular ejection fraction is estimated at 50-55 %. Normal left ventricular wall motion. Right Ventricle Right ventricle not well visualized. Right Atrium Right atrium not well visualized. Left Atrium Left atrium not well visualized. Mitral Valve Mitral valve not well visualized. Aortic Valve Aortic valve not well visualized. Tricuspid Valve Tricuspid valve not well visualized. Pulmonic Valve Pulmonic valve not well visualized. Pericardium No pericardial effusion. Aorta Aortic root and proximal ascending aorta not well visualized. CONCLUSIONS Very limited study, poor acoustic windows. Poorly visualized endocardium and poorly visualized intracardiac valves Normal LV systolic function Previewed by: Dr. Perez Mondragon MD (Electronically Signed) Final Date: 21 September 2023 18:01
[2023-09-21] MEDS: ATORVASTATIN 80 MG TAB PO SCH (20:21)
[2023-09-22 09:17] LABS: Basophils # (A) 0.1 k/uL (0-0.2); Basophils % (A) 1 %; Eosinophils # (A) 0.2 k/uL (0-0.7); Eosinophils % (A) 4 %; HCT 49.1 % (39.0-53.0); HGB 15.8 gm/dL (13.0-17.5); Lymphocytes % (A) 18 %; MCH 32.5 pg (25.0-35.0); MCHC 32.1 g/dL (31.0-37.0); MCV 101.3 fL (80.0-100.0); Mean Platelet Volume 7.3; Monocytes # (A) 0.2 k/uL (0-1.0); Monocytes % (A) 4 %; Neutrophils # (A) 3.7 k/uL (1.3-7.7); Neutrophils % (A) 70 %; Platelet Count 218 k/uL (150-450); RBC 4.85 m/uL (4.30-5.90); RDW 12.3 % (11.5-15.5); WBC 5.3 k/uL (3.8-10.6)
[2023-09-22 09:30] LABS: African American GFR (CKD) 82 (>60 ml/min/1.73 sqM); Anion Gap 10 mmol/L; Blood Urea Nitrogen 12 mg/dL (9-20); Calcium 9.7 mg/dL (8.4-10.2); Carbon Dioxide 25 mmol/L (22-30); Chloride 96 mmol/L (98-107); Glucose 145 mg/dL (74-99); Non-African American GFR(CKD) 71 (>60 ml/min/1.73 sqM); Potassium 4.2 mmol/L (3.5-5.1); Sodium 131 mmol/L (137-145)
--- NOTE | 2023-09-22 10:15 | CT ---
EXAMINATION TYPE: CT brain wo con CT DLP: 1168 mGycm, Automated exposure control for dose reduction was used. DATE OF EXAM: 09/22/2023 8:50 AM COMPARISON: CT brain 09/20/2023. CLINICAL INDICATION:Male, 68 years old with history of left facial droop, dysarthria. CVA, left faci al droop TECHNIQUE: Brain: Axial CT images of the brain were obtained with coronal and sagittal reformats created and rev iewed. Contrast used: None. Oral contrast used: None. FINDINGS: Extra-axial spaces: No abnormal extra-axial fluid collections. Ventricular system: Ventricles appear dilated in proportion to the degree of cerebral atrophy. Cavum septum pellucidum et vergae redemonstrated. Cerebral parenchyma: No increased attenuation to suggest acute intraparenchymal hemorrhage. The gra y-white matter interface appears maintained, without evidence to suggest acute territorial infarction . Moderate generalized atrophy. Scattered hypoattenuating areas are seen within the cerebral white matter, nonspecific but most often seen with chronic microvascular ischemic changes; mild/moderate in degree. Similar appearing areas of hypoattenuation with brain volume loss in the right frontal lobe and perisylvian frontal and parietal lobes compared to prior, consistent with encephalomalacia from remote insults; radiodensity redemonstrated at the anterior aspect of the right middle cranial fossa, likely related to previous aneurysm coiling. Remote infarct right occipital and posterior temporal l obe, similar to previous. Cerebellum: No acute abnormality. Mass effect: No evidence of mass effect or midline shift. Intracranial vasculature: Atherosclerotic calcifications of the larger arteries near the skull base. Soft tissues: No acute or concerning abnormality. Visualized orbits: Orbital contents appear grossly intact. Calvarium/osseous structures: No evidence of acute calvarial fracture. Deformity of the nasal bones l ikely reflects chronic injury. Paranasal sinuses and mastoid air cells: Mild mucosal thickening in the maxillary sinuses. No signifi cant paranasal sinus fluid. Mastoid air cells are clear. MRI is more sensitive for detecting acute processes such as infarct, and may be considered if clinica lly warranted. IMPRESSION: Overall stable intracranial findings. No CT evidence of an acute intracranial abnormality.
--- NOTE | 2023-09-22 13:26 | P.PN ---
Subjective Progress Note Date: 09/22/23 68-year-old male with a history of a right middle cerebral artery aneurysm with coiling about 13 years ago also history of right nephrectomy for renal cell carcinoma also a smoker and drinker who states he had the onset around 5 PM this evening of left-sided facial droop some slurred speech and some tingling and numbness to his right hand. No headache no blurry vision no fever chills nausea vomiting sweats or other symptoms. Patient has history of right MCA aneurysm status post coiling 2009 initially was at [place] on any was having headache for 2 weeks then he was shipped to [facility] in which he had a coil. He was adamant that he does not have any history of stroke per the patient. Workup completed in ED reveals; CBC with differential is unremarkable Lipid panel is triglyceride 104, cholesterol 170, LDL 78 and HDL 70 In our ED the patient had NIH stroke scale of 3 in the points were 1 for aphasia 14 the sensory and [address] of the head is reported as no acute intracranial abnormality. I personally reviewed the CT of the head and the patient's has chronic to ?subacute changes over the right parietal temporal and the right frontal adjacent to the right ventricle are anterior horn. CT angiography head was reported as no acute finding and the arteries of the head/brain. While CT angiography of the neck was reported as no acute finding in the arteries of the neck. A code stroke was activated. The ED physician notified he spoke with Dr. Black and he recommended to avoid thrombolytic because of patient history of coil and history of cancer 09/22/2023 Patient is seen and evaluated in room at bedside; eager to be discharged home Vital signs are reviewed reveal a temperature of 97.3, pulse 96, respirations 17 and blood pressure 113/86 with O2 saturation 98% on room air Blood work reveals WBC of 5.3, hemoglobin of 15.8 and platelet count of 218, sodium 131, potassium 4.2, sodium is improved from 129 yesterday Patient has been evaluated by neurology with possible recommendation for MRI if compatible; records are awaited from [facility] --Patient has been placed on aspirin, Lipitor and Plavix -- Remains on thiamine 100 mg daily given history of alcohol abuse -DVT prophylaxis with heparin 5000 units SQ every 12 hours Objective - Vital Signs Vital signs: Vital Signs Temp 97.3 F L 09/22/23 08:00 Pulse 96 09/22/23 08:00 Resp 17 09/22/23 08:00 BP 113/86 09/22/23 08:00 Pulse Ox 98 09/22/23 08:00 FiO2 Intake & Output 09/21/23 09/22/23 09/22/23 18:59 06:59 18:59 Intake Total 220 Output Total 800 Balance -580 Weight 81.2 kg Intake: Oral 220 Output: Urine 800 Other: Voiding Method Toilet Toilet Toilet # Voids 1 - Exam General appearance: alert, anxious Head exam: Present: other (Facial asymmetry compared to the right) Eye exam: Present: normal appearance, PERRL, EOMI. Absent: scleral icterus, conjunctival injection, periorbital swelling ENT exam: Present: other (Left facial asymmetry is noted slurred speech noted) Neck exam: Present: normal inspection, full ROM, other (No stridor JVD or bruits). Absent: tenderness, meningismus, lymphadenopathy Respiratory exam: Present: normal lung sounds bilaterally. Absent: respiratory distress, wheezes, rales, rhonchi, stridor Cardiovascular Exam: Present: regular rate, normal rhythm, normal heart sounds. Absent: systolic murmur, diastolic murmur, rubs, gallop, clicks GI/Abdominal exam: Present: soft, normal bowel sounds. Absent: distended, tenderness, guarding, rebound, rigid, bruit, pulsatile mass Extremities exam: Present: normal inspection, full ROM, normal capillary refill. Absent: tenderness, pedal edema, joint swelling, calf tenderness Neurological exam: Present: alert, oriented X3, motor sensory deficit. Absent: CN II-XII intact Skin exam: Present: warm, dry, intact, normal color. Absent: rash - Labs CBC & Chem 7: 09/22/23 08:17 09/22/23 08:17 Labs: Abnormal Lab Results - Last 24 Hours (Table) 09/22/23 09/22/23 Range/Units 08:17 08:17 MCV 101.3 H (80.0-100.0) fL Sodium 131 L (137-145) mmol/L Chloride 96 L (98-107) mmol/L Glucose 145 H (74-99) mg/dL Assessment and Plan Assessment: 1. Acute versus subacute CVA --Patient presenting with left facial droop and dysarthria with left hand numbness -- CT of the head was reviewed by neurology and felt to have changes over the right temporal and frontal lobe which could be subacute to chronic -- Patient has been admitted for further evaluation; MRI of the brain is ordered; plan is to repeat CT of the head tomorrow if patient is not compatible for MRI because of his coil -- 2D echo is ordered and pending -Patient is placed on aspirin 325 mg daily along with Plavix 75 mg daily; dual antiplatelet therapy recommended for 25 1 days after which Plavix will be discontinued and patient to remain on aspirin indefinitely -- Patient is placed on Lipitor 80 mg nightly -- PT/OT/LEGAL SUMMER INTERN consulted 2. Chronic alcohol use -- Patient is placed on thiamine 100 mg daily; we will monitor closely with plans to initiate CIWA protocol if needed 3. Hyponatremia; remains on IV fluids in form of normal saline; we will monitor electrolytes closely and make changes as needed 4. Insomnia/sleep disorder; patient takes melatonin as needed DVT prophylaxis; SCDs/subcu heparin CODE STATUS; full code
--- NOTE | 2023-09-22 14:23 | P.PN ---
Subjective Progress Note Date: 09/22/23 I am following-up with patient and he feels he is doing better. Feels he has mild left lower facial weakness. Objective - Vital Signs Vital signs: Vital Signs Temp 97.3 F L 09/22/23 08:00 Pulse 92 09/22/23 11:28 Resp 19 09/22/23 11:28 BP 117/75 09/22/23 11:28 Pulse Ox 98 09/22/23 11:28 FiO2 Intake & Output 09/21/23 09/22/23 09/22/23 18:59 06:59 18:59 Intake Total 220 420 Output Total 800 Balance -580 420 Weight 81.2 kg Intake: Oral 220 420 Output: Urine 800 Other: Voiding Method Toilet Toilet Toilet # Voids 1 2 - Exam GENERAL: The patient is lying in bed and is not in acute distress. NEUROLOGICAL: Higher mental function: The patient is awake, alert, oriented to self, place and time. Patient is following commands. No aphasia and no neglect. Cranial nerves: The pupils are round, equal and reactive to light and accommodation. Visual dasilva are full to confrontation throughout. Extraocular movement is intact no nystagmus is noted. Facial sensation is normal to touch throughout. Has left lower facial weakness. Hearing is severely to moderately decreased to hand rub bilaterally. Tongue is midline and moved [id number] without any difficulty. Mild dysarthria is noted. Shoulder shrug is normal bilaterally. Motor: The strength is 5 over 5 throughout. Normal tone and bulk. Cerebellum: Normal finger to nose heel to saunders bilaterally. Sensation: Sensation is normal to touch throughout. Reflexes (right/left): 2+ throughout. Plantars are downgoing bilaterally. Some of the workup during his hospital visit consisted of: CBC with differential is unremarkable Lipid panel is triglyceride 104, cholesterol 170, LDL 78 and HDL 70 Hemoglobin A1c is 5.5. CT of the head is reported as no acute intracranial abnormality. I personally reviewed the CT of the head and the patient's has chronic to ?subacute changes over the right parietal temporal and the right frontal adjacent to the right ventricle are anterior horn. CT angiography head was reported as no acute finding and the arteries of the head/brain. While CT angiography of the neck was reported as no acute finding in the arteries of the neck. 2-D echo was reported as very limited study, poor acoustical window. Poorly visualized echocardiogram and poorly visualized intracardiac valve. Normal left ventricle systolic function Repeat CT of the head today is reported as overall stable intracranial finding. No CT evidence of acute intracranial abnormality. I felt the patient has chronic right frontal temporal and temporal/occipital stroke. - Labs CBC & Chem 7: 09/22/23 08:17 09/22/23 08:17 Labs: Abnormal Lab Results - Last 24 Hours (Table) 09/22/23 09/22/23 Range/Units 08:17 08:17 MCV 101.3 H (80.0-100.0) fL Sodium 131 L (137-145) mmol/L Chloride 96 L (98-107) mmol/L Glucose 145 H (74-99) mg/dL Assessment and Plan Assessment: This is a 68-year-old gentleman with history of right MCA aneurysm status post coil in 2009 who presents because of left facial droop, dysarthria and left hand numbness (on the 3rd digit). He feels his symptoms has improved to closely resolved but on examination to myself and to the nurse she continues to have left facial droop with subtle dysarthria. Acute to subacute stroke. The patient has left facial droop with dysarthria and left hand numbness. On CT of the head I felt the patient had CT changes over the right temporal, frontal and right temporal/occipital region but this seems more chronic to questionable subacute History of right MCA aneurysm status post coiling 2009 at [facility] Tobacco use (1/ PPD) Alcohol use Plan: Pending MRI of the brain 2-D echo is a completed but was very limited, therefore recommend transesophageal echocardiogram with cardiology consultation Patient was given aspirin 325 daily in the ED. Then he was started on aspirin 325 daily and Plavix 75 mg daily. Prior to this the patient was not on any antiplatelet or and statin. Recommend the patient to be on dual antiplatelets for 21 days and after 21 days discontinue Plavix but continue aspirin ind efinitely. He start on Lipitor 80 mg daily at bedtime Continue neuro checks Cardiac monitoring PT OT and SCOWMAN are consulted Patient was counseled on tobacco cessation Continue thiamine 100 mg daily. Upon discharge recommend the patient to follow-up with a neurologist as an outpatient within 1-2 weeks. We'll defer the rest of the medical measure the primary team For DVT prophylaxis Continue subcu heparin 5000 units every 12 hours The plan discussed with the patient, primary attending and his nurse Time with Patient: Less than 30
[2023-09-23] MEDS ORDERED: LORazepam 0.5 MG TAB PO PRN (00:04)
[2023-09-23] MEDS ORDERED: LORazepam 1 MG TAB PO PRN (00:04)
[2023-09-23] MEDS: LORazepam 1 MG TAB PO PRN (00:17)
--- NOTE | 2023-09-23 13:32 | P.PN ---
Subjective Progress Note Date: 09/23/23 I am following-up with patient and he feels about the same. Objective - Vital Signs Vital signs: Vital Signs Temp 97.7 F 09/23/23 08:33 Pulse 112 H 09/23/23 11:27 Resp 18 09/23/23 11:27 BP 146/77 09/23/23 11:27 Pulse Ox 100 09/23/23 11:27 FiO2 Intake & Output 09/22/23 09/23/23 09/23/23 18:59 06:59 18:59 Intake Total 420 0 Balance 420 0 Intake: Oral 420 0 Other: Voiding Method Toilet Toilet Toilet # Voids 2 3 2 - Exam GENERAL: The patient is lying in bed and is not in acute distress. NEUROLOGICAL: Higher mental function: The patient is awake, alert, oriented to self, place and time. Patient is following commands. No aphasia and no neglect. Cranial nerves: The pupils are round, equal and reactive to light and accommodat ion. Visual dasilva are full to confrontation throughout. Extraocular movement is intact no nystagmus is noted. Facial sensation is normal to touch throughout. Has left lower facial weakness. Hearing is severely to moderately decreased to hand rub bilaterally. Tongue is midline and moved [id number] without any difficulty. Mild dysarthria is noted. Shoulder shrug is normal bilaterally. Motor: The strength is 5 over 5 throughout. Normal tone and bulk. Cerebellum: Normal finger to nose heel to saunders bilaterally. Sensation: Sensation is normal to touch throughout. Reflexes (right/left): 2+ throughout. Plantars are downgoing bilaterally. Some of the workup during his hospital visit consisted of: CBC with differential is unremarkable Lipid panel is triglyceride 104, cholesterol 170, LDL 78 and HDL 70 Hemoglobin A1c is 5.5. CT of the head is reported as no acute intracranial abnormality. I personally reviewed the CT of the head and the patient's has chronic to ?subacute changes over the right parietal temporal and the right frontal adjacent to the right ventricle are anterior horn. CT angiography head was reported as no acute finding and the arteries of the head/brain. While CT angiography of the neck was reported as no acute finding in the arteries of the neck. 2-D echo was reported as very limited study, poor acoustical window. Poorly visualized echocardiogram and poorly visualized intracardiac valve. Normal left ventricle systolic function Repeat CT of the head today is reported as overall stable intracranial finding. No CT evidence of acute intracranial abnormality. I felt the patient has chronic right frontal temporal and temporal/occipital stroke. - Labs CBC & Chem 7: 09/22/23 08:17 09/22/23 08:17 Assessment and Plan Assessment: This is a 68-year-old gentleman with history of right MCA aneurysm status post coil in 2009 who presents because of left facial droop, dysarthria and left hand numbness (on the 3rd digit). He feels his symptoms has improved to closely resolved but on examination to myself and to the nurse she continues to have left facial droop with subtle dysarthria. Acute to subacute stroke. The patient has left facial droop with dysarthria and left hand numbness. On CT of the head I felt the patient had CT changes over the right temporal, frontal and right temporal/occipital region but this seems more chronic to questionable subacute History of right MCA aneurysm status post coiling 2009 at [facility] Tobacco use (07/10 PPD) Alcohol use Plan: Pending MRI of the brain 2-D echo is a completed but was very limited, therefore recommend transesophageal echocardiogram with cardiology consultation Patient was given aspirin 325 daily in the ED. Then he was started on aspirin 325 daily and Plavix 75 mg daily. Prior to this the patient was not on any antiplatelet or and statin. Recommend the patient to be on dual antiplatelets for 21 days and after 21 days discontinue Plavix but continue aspirin indefinitely. He start on Lipitor 80 mg daily at bedtime Continue neuro checks Cardiac monitoring PT OT and PROGRAMS ASSISTANT are consulted Patient was counseled on tobacco cessation Continue thiamine 100 mg daily. Upon discharge recommend the patient to follow-up with a neurologist as an outpatient within 1-2 weeks. We'll defer the rest of the medical measure the primary team For DVT prophylaxis Continue subcu heparin 5000 units every 12 hours The plan discussed with the patient and his nurse Time with Patient: Less than 30
[2023-09-23 14:46] LABS: Basophils # (A) 0.1 k/uL (0-0.2); Basophils % (A) 1 %; Eosinophils # (A) 0.2 k/uL (0-0.7); Eosinophils % (A) 3 %; HCT 46.7 % (39.0-53.0); HGB 15.6 gm/dL (13.0-17.5); Lymphocytes % (A) 18 %; MCH 33.3 pg (25.0-35.0); MCHC 33.3 g/dL (31.0-37.0); MCV 99.8 fL (80.0-100.0); Mean Platelet Volume 7.4; Monocytes # (A) 0.5 k/uL (0-1.0); Monocytes % (A) 8 %; Neutrophils % (A) 69 %; Platelet Count 246 k/uL (150-450); RBC 4.68 m/uL (4.30-5.90); RDW 12.4 % (11.5-15.5); WBC 5.7 k/uL (3.8-10.6)
[2023-09-23 15:27] LABS: African American GFR (CKD) >90 (>60 ml/min/1.73 sqM); Anion Gap 13 mmol/L; Blood Urea Nitrogen 16 mg/dL (9-20); Calcium 9.7 mg/dL (8.4-10.2); Carbon Dioxide 21 mmol/L (22-30); Chloride 96 mmol/L (98-107); Glucose 115 mg/dL (74-99); Non-African American GFR(CKD) 88 (>60 ml/min/1.73 sqM); Sodium 130 mmol/L (137-145)
[2023-09-23 15:29] LABS: Potassium 4.9 mmol/L (3.5-5.1)
--- NOTE | 2023-09-23 15:33 | P.PN ---
Subjective Progress Note Date: 09/23/23 68-year-old male with a history of a right middle cerebral artery aneurysm with coiling about 13 years ago also history of right nephrectomy for renal cell carcinoma also a smoker and drinker who states he had the onset around 5 PM this evening of left-sided facial droop some slurred speech and some tingling and numbness to his right hand. No headache no blurry vision no fever chills nausea vomiting sweats or other symptoms. Patient has history of right MCA aneurysm status post coiling 2009 initially was at [place] on any was having headache for 2 weeks then he was shipped to [facility] in which he had a coil. He was adamant that he does not have any history of stroke per the patient. Workup completed in ED reveals; CBC with differential is unremarkable Lipid panel is triglyceride 104, cholesterol 170, LDL 78 and HDL 70 In our ED the patient had NIH stroke scale of 3 in the points were 1 for aphasia 14 the sensory and [address] of the head is reported as no acute intracranial abnormality. I personally reviewed the CT of the head and the patient's has chronic to ?subacute changes over the right parietal temporal and the right frontal adjacent to the right ventricle are anterior horn. CT angiography head was reported as no acute finding and the arteries of the head/brain. While CT angiography of the neck was reported as no acute finding in the arteries of the neck. A code stroke was activated. The ED physician notified he spoke with Dr. Black and he recommended to avoid thrombolytic because of patient history of coil and history of cancer 09/22/2023 Patient is seen and evaluated in room at bedside; eager to be discharged home Vital signs are reviewed reveal a temperature of 97.3, pulse 96, respirations 17 and blood pressure 113/86 with O2 saturation 98% on room air Blood work reveals WBC of 5.3, hemoglobin of 15.8 and platelet count of 218, sodium 131, potassium 4.2, sodium is improved from 129 yesterday Patient has been evaluated by neurology with possible recommendation for MRI if compatible; records are awaited from [facility] --Patient has been placed on aspirin, Lipitor and Plavix -- Remains on thiamine 100 mg daily given history of alcohol abuse -DVT prophylaxis with heparin 5000 units SQ every 12 hours 09/23/2023 Patient is seen and evaluated in room at bedside; reports he feels about the same Vital signs review shows temperature 97.7, pulse 112, respiration 18 and blood pressure 146/77 CT of the head is reported as no acute intracranial abnormality. CT of the head has been reviewed by neurology and the patient is believed to have chronic to ?subacute changes over the right parietal temporal and the right frontal adjacent to the right ventricle are anterior horn. CT angiography head was reported as no acute finding and the arteries of the head/brain. While CT angiography of the neck was reported as no acute finding in the arteries of the neck. 2-D echo was reported as very limited study, poor acoustical window. Poorly visualized echocardiogram and poorly visualized intracardiac valve. Normal left ventricle systolic function Repeat CT of the head today is reported as overall stable intracranial finding. No CT evidence of acute intracranial abnormality. -- Patient is discussed with neurology; recommending to proceed with MRI of the brain and recommending to consult cardiology for a MARIA ALEJANDRA Objective - Vital Signs Vital signs: Vital Signs Temp 97.7 F 09/23/23 08:33 Pulse 98 09/23/23 08:33 Resp 17 09/23/23 08:33 BP 132/87 09/23/23 08:33 Pulse Ox 100 09/23/23 08:33 FiO2 Intake & Output 09/22/23 09/23/23 09/23/23 18:59 06:59 18:59 Intake Total 420 Balance 420 Intake: Oral 420 Other: Voiding Method Toilet Toilet Toilet # Voids 2 3 - Exam General appearance: alert, anxious Head exam: Present: other (Facial asymmetry compared to the right) Eye exam: Present: normal appearance, PERRL, EOMI. Absent: scleral icterus, conjunctival injection, periorbital swelling ENT exam: Present: other (Left facial asymmetry is noted slurred speech noted) Neck exam: Present: normal inspection, full ROM, other (No stridor JVD or bruits). Absent: tenderness, meningismus, lymphadenopathy Respiratory exam: Present: normal lung sounds bilaterally. Absent: respiratory distress, wheezes, rales, rhonchi, stridor Cardiovascular Exam: Present: regular rate, normal rhythm, normal heart sounds. Absent: systolic murmur, diastolic murmur, rubs, gallop, clicks GI/Abdominal exam: Present: soft, normal bowel sounds. Absent: distended, tenderness, guarding, rebound, rigid, bruit, pulsatile mass Extremities exam: Present: normal inspection, full ROM, normal capillary refill. Absent: tenderness, pedal edema, joint swelling, calf tenderness Neurological exam: Present: alert, oriented X3, motor sensory deficit. Absent: CN II-XII intact Skin exam: Present: warm, dry, intact, normal color. Absent: rash - Labs CBC & Chem 7: 09/23/23 13:59 09/22/23 08:17 Assessment and Plan Assessment: 1. Acute versus subacute CVA --Patient presenting with left facial droop and dysarthria with left hand numbness -- CT of the head was reviewed by neurology and felt to have changes over the right temporal and frontal lobe which could be subacute to chronic -- Patient has been admitted for further evaluation; MRI of the brain is ordered; plan is to repeat CT of the head tomorrow if patient is not compatible for MRI because of his coil -- 2D echo is ordered and pending -Patient is placed on aspirin 325 mg daily along with Plavix 75 mg daily; dual antiplatelet therapy recommended for 25 1 days after which Plavix will be discontinued and patient to remain on aspirin indefinitely -- Patient is placed on Lipitor 80 mg nightly -- PT/OT/BOTTOM WHEELER consulted 2. Chronic alcohol use -- Patient is placed on thiamine 100 mg daily; we will monitor closely with plans to initiate CIWA protocol if needed 3. Hyponatremia; remains on IV fluids in form of normal saline; we will monitor electrolytes closely and make changes as needed 4. Insomnia/sleep disorder; patient takes melatonin as needed DVT prophylaxis; SCDs/subcu heparin CODE STATUS; full code
[2023-09-24 07:55] LABS: Basophils # (A) 0.1 k/uL (0-0.2); Basophils % (A) 1 %; Eosinophils # (A) 0.2 k/uL (0-0.7); Eosinophils % (A) 3 %; HCT 47.2 % (39.0-53.0); HGB 15.5 gm/dL (13.0-17.5); Lymphocytes # (A) 1.2 k/uL (1.0-4.8); Lymphocytes % (A) 19 %; MCH 32.4 pg (25.0-35.0); MCHC 32.8 g/dL (31.0-37.0); MCV 98.8 fL (80.0-100.0); Mean Platelet Volume 7.5; Monocytes # (A) 0.3 k/uL (0-1.0); Monocytes % (A) 5 %; Neutrophils # (A) 4.4 k/uL (1.3-7.7); Neutrophils % (A) 70 %; Platelet Count 276 k/uL (150-450); RBC 4.78 m/uL (4.30-5.90); RDW 12.8 % (11.5-15.5); WBC 6.2 k/uL (3.8-10.6)
[2023-09-24 08:26] LABS: African American GFR (CKD) 85 (>60 ml/min/1.73 sqM); Anion Gap 13 mmol/L; Blood Urea Nitrogen 15 mg/dL (9-20); Calcium 9.9 mg/dL (8.4-10.2); Carbon Dioxide 21 mmol/L (22-30); Chloride 96 mmol/L (98-107); Glucose 135 mg/dL (74-99); Non-African American GFR(CKD) 74 (>60 ml/min/1.73 sqM); Potassium 4.4 mmol/L (3.5-5.1); Sodium 130 mmol/L (137-145)
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
[2023-09-24] MEDS: SODIUM CHLORIDE 0.9% 500 ML 500 ML IV ONE (13:18)
[2023-09-24] MEDS: BENZOCAINE SPRAY 1 CAN TOPICAL ONE (13:19)
[2023-09-24] MEDS: MIDAZOLAM 2 MG/2 ML VIAL IVP ONE ×2 (13:19→13:23)
[2023-09-24] MEDS: fentaNYL (PF) 50 MCG/ML 2 ML AMP IVP ONE (13:21)
--- NOTE | 2023-09-24 13:33 | P.PCN ---
Date of Procedure: 09/24/23 Operative Findings: TRANSESOPHAGEAL ECHOCARDIOGRAM METAL SPRAYER PROTECTIVE COATING: BENJAMIN DEL CASTILLO MD, RPVI INDICATION: Rule out cardiac source of embolization SEDATION: Conscious sedation COMPLICATION: None LEVEL OF SEDATION Moderate with sedation length of 16 minutes PROCEDURE DESCRIPTION: After obtaining an informed consent, the patient was brought to transesophageal echocardiogram room. Pulse oximetry and heart monitors were attached to the patient. The patient throat was sprayed using lidocaine. The patient was turned into left lateral position. After that a bite guard was placed. After an appropriate conscious sedation was initiated, the transesophageal echocardiogram was advanced through a bite guard into the mid esophagus. A 2-D echocardiogram images, color Doppler images, continuous wave images, pulse-wave images, of various cardiac structure were performed. After that the transesophageal echocardiogram probe was advanced into the stomach and fixed to obtain transgastric view was. The probe was brought into the mid esophagus. Inter-atrial septum was interrogated using 2D images, color Doppler images, and then contrast study. After that transesophageal echocardiogram was withdrawn out and upon withdrawing the descending thoracic aorta all the way up to the arch was evaluated. CONCLUSION: 1. 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 No PFO noted. 2. Normal LV systolic function 3. Intact intracardiac valves 4. Normal left atrial appendage 5. No evidence of pericardial effusion
[2023-09-24] MEDS: fentaNYL (PF) 50 MCG/ML 2 ML AMP ONE (15:58)
[2023-09-24] MEDS: IBUPROFEN 400 MG TAB PO ONE (17:40)
--- NOTE | 2023-09-24 18:17 | P.PN ---
Subjective Progress Note Date: 09/24/23 Patient initially seen by Dr. Demarcus Jeffery. Please refer to his note for details. Patient is a 68-year-old male with left facial droop and dysarthria. MRI pending. Patient has endovascular coils, cannot have MRI in [facility]. Patient states that he has no slurring, and the droopy face has improved. The numbness of the left hand has also improved now only the numbness of the left middle finger. No headache. Some of the workup during his hospital visit consisted of: CBC with differential is unremarkable Lipid panel is triglyceride 104, cholesterol 170, LDL 78 and HDL 70 Hemoglobin A1c is 5.5. CT of the head is reported as no acute intracranial abnormality. I personally reviewed the CT of the head and the patient's has chronic to ?subacute changes over the right parietal temporal and the right frontal adjacent to the right ventricle are anterior horn. CT angiography head was reported as no acute finding and the arteries of the head/brain. While CT angiography of the neck was reported as no acute finding in the arteries of the neck. 2-D echo was reported as very limited study, poor acoustical window. Poorly visualized echocardiogram and poorly visualized intracardiac valve. Normal left ventricle systolic function Repeat CT of the head today is reported as overall stable intracranial finding. No CT evidence of acute intracranial abnormality. Dr. Jeffery felt the patient has chronic right frontal temporal and temporal/occipital stroke. Objective - Vital Signs Vital signs: Vital Signs Temp 98 F 09/24/23 09:10 Pulse 94 09/24/23 14:25 Resp 17 09/24/23 14:25 BP 122/87 09/24/23 14:25 Pulse Ox 97 09/24/23 14:25 FiO2 Intake & Output 09/23/23 09/24/23 09/24/23 18:59 06:59 18:59 Intake Total 118 246 612 Balance 118 246 612 Intake: IV 10 150 Invasive Line 1 10 Oral 118 236 462 Other: Voiding Method Toilet Toilet Toilet # Voids 2 2 - Exam Mental status is normal, speech is slightly dysarthric but no aphasia. Comprehension is intact. Cranial nerves reveal pupils equal, round and reacting, visual dasilva are full, extraocular muscles are intact. He has left facial weakness, central type. Complete sparing of the forehead and eye closure. Tongue protrudes to midline. On muscle strength testing no pronator drift and the strength is normal. No ataxia. Sensations equal. - Labs CBC & Chem 7: 09/24/23 07:30 09/24/23 07:30 Labs: Abnormal Lab Results - Last 24 Hours (Table) 09/24/23 Range/Units 07:30 Sodium 130 L (137-145) mmol/L Chloride 96 L (98-107) mmol/L Carbon Dioxide 21 L (22-30) mmol/L Glucose 135 H (74-99) mg/dL Assessment and Plan Assessment: This is a 68-year-old gentleman with history of right MCA aneurysm status post coil in 2009 who presents because of left facial droop, dysarthria and left hand numbness (on the 3rd digit). He feels his symptoms has improved to closely resolved but on examination to myself and to the nurse she continues to have left facial droop with subtle dysarthria. Acute to subacute stroke. The patient has left facial droop with dysarthria and left hand numbness. On CT of the head I felt the patient had CT changes over the right temporal, frontal and right temporal/occipital region but this seems more chronic to questionable subacute History of right MCA aneurysm status post coiling 2009 at [facility] Tobacco use (1/2 PPD) Alcohol use Plan: Pending MRI of the brain. Patient has endovascular coils, cannot have it done in [facility]. Recommend patient undergo MRI of the brain as an outpatient and then follow-up with the neurologist. He used to follow Dr. Raimundo Pineda MD, who is a radiologist. Patient may have MRI outpatient, but need to follow-up with the neurologist. Transesophageal echocardiogram revealed: 1. 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 No PFO noted. 2. Normal LV systolic function 3. Intact intracardiac valves 4. Normal left atrial appendage 5. No evidence of pericardial effusion Patient was given aspirin 325 daily in the ED. Then he was started on aspirin 325 daily and Plavix 75 mg daily. Prior to this the patient was not on any antiplatelet or and statin. Recommend the patient to be on dual antiplatelets for 21 days and after 21 days discontinue Plavix but continue aspirin indefini tely. He start on Lipitor 80 mg daily at bedtime. Continue neuro checks Cardiac monitoring PT OT and PHOTOGRAPHIC PROCESS ATTENDANT are consulted Patient was counseled on tobacco cessation Continue thiamine 100 mg daily. Upon discharge recommend the patient to follow-up with a neurologist as an outpatient within 1-2 weeks. We'll defer the rest of the medical measure the primary team For DVT prophylaxis Continue subcu heparin 5000 units every 12 hours Neurologically clear, discussed with patient's nurse as well.
[2023-09-24] MEDS: ACETAMINOPHEN TAB 325 MG TAB PO PRN (21:10)
[2023-09-25] MEDS: LORazepam 1 MG TAB PO PRN (00:30)
[2023-09-25 10:11] VITALS: BP 107/76; PULSE 98; RESP 17; TEMP 97.6
[2023-09-25 10:17] LABS: Basophils # (A) 0.1 k/uL (0-0.2); Basophils % (A) 1 %; Eosinophils # (A) 0.2 k/uL (0-0.7); Eosinophils % (A) 3 %; HCT 45.4 % (39.0-53.0); HGB 14.6 gm/dL (13.0-17.5); Lymphocytes % (A) 17 %; MCH 32.4 pg (25.0-35.0); MCHC 32.2 g/dL (31.0-37.0); MCV 100.6 fL (80.0-100.0); Mean Platelet Volume 7.3; Monocytes # (A) 0.4 k/uL (0-1.0); Monocytes % (A) 7 %; Neutrophils % (A) 69 %; Platelet Count 263 k/uL (150-450); RBC 4.51 m/uL (4.30-5.90); RDW 12.4 % (11.5-15.5); WBC 5.8 k/uL (3.8-10.6)
[2023-09-25 10:32] LABS: African American GFR (CKD) 88 (>60 ml/min/1.73 sqM); Anion Gap 9 mmol/L; Blood Urea Nitrogen 18 mg/dL (9-20); Calcium 9.5 mg/dL (8.4-10.2); Carbon Dioxide 22 mmol/L (22-30); Chloride 99 mmol/L (98-107); Glucose 95 mg/dL (74-99); Non-African American GFR(CKD) 76 (>60 ml/min/1.73 sqM); Potassium 4.6 mmol/L (3.5-5.1); Sodium 130 mmol/L (137-145)
== END 2023-09-25 11:57 | disposition home or self-care (01) | DRG 65 ==
LOC: EC 19:41 → 3SCARD 22:55
PROVIDERS: ADMIT Internal Medicine; ATTEND Internal Medicine
PROC: B24BZZ4 Ultrasonography of Heart with Aorta, Transesophageal (ICD-10-PCS; principal; 2023-09-24 12:10)
DX: I63.9 Cerebral infarction, unspecified (principal); E87.1 Hypo-osmolality and hyponatremia; R47.81 Slurred speech; R47.1 Dysarthria and anarthria; R29.810 Facial weakness; F17.210 Nicotine dependence, cigarettes, uncomplicated; F10.10 Alcohol abuse, uncomplicated; R29.703 NIHSS score 3; G47.00 Insomnia, unspecified; R47.01 Aphasia; Z79.899 Other long term (current) drug therapy; Z85.528 Personal history of other malignant neoplasm of kidney; Z90.5 Acquired absence of kidney; L98.9 Disorder of the skin and subcutaneous tissue, unspecified; G47.30 Sleep apnea, unspecified; Z86.19 Personal history of other infectious and parasitic diseases; Z86.79 Personal history of other diseases of the circulatory system; Z79.82 Long term (current) use of aspirin; Z28.21 Immunization not carried out because of patient refusal; Z28.310 Unvaccinated for COVID-19
CPT/HCPCS: 36415; 70450; 70496; 70498; 71045; 80048; 80053; 80061; 80320; 82550; 83036; 84484; 85025; 85610; 85730; 93005; 93306; 93312; 93320; 93325; 96374; 99285; 99406

== ENCOUNTER → 2023-10-11 | Outpatient (CLI) | payer MEDICARE ==
[2023-10-11 11:52] LABS: African American GFR (CKD) >90 (>60 ml/min/1.73 sqM); Blood Urea Nitrogen 12 mg/dL (9-20); Non-African American GFR(CKD) 79 (>60 ml/min/1.73 sqM)
--- NOTE | 2023-10-11 20:44 | CT ---
EXAMINATION TYPE: CT abdomen pelvis w con DATE OF EXAM: 10/11/2023 COMPARISON: 10/14/2021 INDICATION: right renal CA, f/u DLP: 686.7 mGycm, Automated exposure control for dose reduction was used. CONTRAST: 100 mL of Isovue 300. Study performed with Oral Contrast TECHNIQUE: Axial images were obtained from above the diaphragm to the pubic rami in the axial plane a t 5 mm thick sections. Reconstructed images are reviewed on the computer in the coronal plane. FINDINGS: Limited CT sections are obtained the lung bases. The lung bases are clear. CT ABDOMEN: Liver: There are multiple patchy hypodensities within the liver suspicious for metastatic disease. Il l-defined larger lesion better defined is in the superior right lobe liver near the diaphragm measuri ng 3.2 cm. There are multiple additional ill-defined hypodensities within the bilateral hepatic lobes . Spleen: Normal Pancreas: There is a slightly hypodense area surrounding the superior mesenteric artery which appears to be at the posterior head and proximal body of the pancreas. A pancreatic lesion should be conside red 4 cm. Adrenal glands: The adrenal glands are normal. Gallbladder: There is some fluid adjacent to the gallbladder. The gallbladder is incompletely distend ed. Consider cholecystitis Kidneys: Right kidney is surgically absent. There is a large cyst in left kidney measuring 2.7 cm in the mid pole. Adjacent smaller cortical renal cyst is present measuring 1.5 cm. Couple of tiny cortic al renal cysts are present.. No hydronephrosis is present. Delayed images were obtained through the kidneys, which remain unremarkable. Aorta: Vascular calcification is within the aorta. Inferior vena cava: Normal. CT PELVIS: Loops of bowel within the abdomen and pelvis are normal. There are loops of bowel which are incom pletely distended or lack oral contrast limiting their evaluation. Appendix: Normal as visualized. Urinary bladder: Normal. Genitourinary structures: Prostate is prominent contains calcification. Osseous structures: No suspicious lytic or sclerotic lesions. Lymphadenopathy: There are inguinal lymph nodes present bilaterally. Largest on the left measures 1.0 cm. Largest on the right measures 1.2 cm. No periaortic or retrocaval adenopathy is evident. No retr ocrural adenopathy is evident. IMPRESSION: 1. Surgical absence of the right kidney. 2. Interval development of a 4 cm mass at the junction of the head and body of the pancreas surround ing the superior mesenteric artery. Correlate for pancreatic neoplasm. 3. Multiple ill-defined hypodensities within the liver suspicious for metastasis. 4. Left renal cysts #5 there may be some pericholecystic fluid present. Clinical correlation recommen ded for acute cholecystitis.
== END | disposition home or self-care (01) ==
LOC: RADCTMAIN 10:13
PROVIDERS: ATTEND Urology
DX: N28.1 Cyst of kidney, acquired (principal); R22.0 Localized swelling, mass and lump, head; Z90.5 Acquired absence of kidney
CPT/HCPCS: 82565; 84520; 74177; 36415; Q9967

== ENCOUNTER 2023-10-28 09:16 | Inpatient (IN) | payer MEDICARE ==
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
[2023-10-28] MEDS: oxyCODONE-APAP 10-325MG 1 EACH TAB PO STA (10:45)
[2023-10-28] MEDS: SODIUM CHLORIDE 0.9% 500 ML 500 ML IV STA (10:47)
[2023-10-28 11:00] LABS: Basophils # (A) 0.1 k/uL (0-0.2); Basophils % (A) 1 %; Eosinophils # (A) 0.2 k/uL (0-0.7); Eosinophils % (A) 4 %; HCT 32.5 % (39.0-53.0); Lymphocytes # (A) 0.6 k/uL (1.0-4.8); Lymphocytes % (A) 11 %; MCHC 32.6 g/dL (31.0-37.0); Mean Platelet Volume 8.2; Monocytes # (A) 0.5 k/uL (0-1.0); Monocytes % (A) 9 %; Neutrophils # (A) 3.9 k/uL (1.3-7.7); Neutrophils % (A) 73 %; Platelet Count 179 k/uL (150-450); RBC 3.32 m/uL (4.30-5.90); RDW 13.5 % (11.5-15.5); WBC 5.3 k/uL (3.8-10.6)
--- NOTE | 2023-10-28 11:07 | CT ---
EXAM: CT Lumbar Spine Without Intravenous Contrast CLINICAL HISTORY: ITS.REASON CT Reason: back pain TECHNIQUE: Axial computed tomography images of the lumbar spine without intravenous contrast. CTDI is 21.7 mGy and DLP is 749.8 mGy-cm. This CT exam was performed using one or more of the following dose reduction techniques: automated exposure control, adjustment of the mA and/or kV according to patient size, and/or use of iterative reconstruction technique. COMPARISON: No relevant prior studies available. FINDINGS: Vertebrae: Unremarkable. No acute fracture. Levoconvex scoliosis of the lumbar spine centered about L3. No spondylolisthesis. Advanced facet arthropathy at L3-L4. Discs/spinal canal/neural foramina: No acute findings. Severe disc space narrowing, endplate sclerosis, and posterior disc bulge at L3-L4. Additional posterior disc bulges at L1-L2, L2-L3, L4-L5, L5-S1 with moderate disc space narrowing at L5-S1. Mild spinal canal narrowing at L2-L3 and severe spinal canal narrowing at L4-L5. Severe left and mild right foraminal narrowing at L1-L2. Moderate bilateral foraminal narrowing at L2-L3. Severe right and mild left foraminal narrowing at L3- L4. Severe left and moderate right foraminal at L4-L5. Severe left and moderate right foraminal narrowing at L5-S1. Soft tissues: Status post right nephrectomy. IMPRESSION: 1. No acute lumbar spine fractures. 2. Levoconvex scoliosis of the lumbar spine centered about L3 with severe degenerative disc disease throughout the lower lumbar spine. Severe spinal canal narrowing at L4-L5 with multilevel foraminal narrowing on the left throughout the lumbar spine.
[2023-10-28 11:14] LABS: ALT 109 U/L (4-49); AST 105 U/L (17-59); African American GFR (CKD) 82 (>60 ml/min/1.73 sqM); Albumin 3.7 g/dL (3.5-5.0); Alkaline Phosphatase 450 U/L (38-126); Anion Gap 9 mmol/L; Blood Urea Nitrogen 14 mg/dL (9-20); Calcium 9.5 mg/dL (8.4-10.2); Carbon Dioxide 22 mmol/L (22-30); Chloride 97 mmol/L (98-107); Glucose 105 mg/dL (74-99); Magnesium 1.8 mg/dL (1.6-2.3); Non-African American GFR(CKD) 71 (>60 ml/min/1.73 sqM); Potassium 4.9 mmol/L (3.5-5.1); Sodium 128 mmol/L (137-145); Total Bilirubin 1.6 mg/dL (0.2-1.3); Total Protein 7.1 g/dL (6.3-8.2)
[2023-10-28 11:25] LABS: HGB 10.6 gm/dL (13.0-17.5)
[2023-10-28] MEDS ORDERED: NALOXONE 0.4 MG/ML 1 ML VIAL IV PRN (12:08)
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
[2023-10-28] MEDS: SODIUM CHLORIDE 0.9% 1,000 ML IV SCH (13:56)
[2023-10-28] MEDS: ATORVASTATIN 80 MG TAB PO SCH (19:52)
[2023-10-28] MEDS: MELATONIN 5 MG TABLET PO PRN (19:52)
[2023-10-28] MEDS: PANTOPRAZOLE 40 MG/10 ML VIAL IVP SCH (23:01)
[2023-10-29] MEDS: ONDANSETRON 4 MG/2 ML VIAL IVP PRN (00:50)
[2023-10-29] MEDS: MORPHINE SULFATE 2 MG/ML SYRINGE IVP STA (01:42)
[2023-10-29] MEDS: LORazepam 2 MG/ML INJ IV PRN (02:18)
[2023-10-29] MEDS: THIAMINE 100 MG TAB PO SCH (08:47)
[2023-10-29] MEDS: HALOPERIDOL LACTATE 5 MG/ML 1 ML VIAL IM STA (08:53)
[2023-10-29] MEDS: HYDROcodone/APAP 5-325MG 1 EACH TAB PO PRN (11:50)
--- NOTE | 2023-10-29 13:50 | US ---
EXAMINATION TYPE: US liver DATE OF EXAM: 10/29/2023 COMPARISON: NONE CLINICAL INDICATION: Male, 68 years old with history of See IR consult for ordering information; TECHNIQUE: Multiple sonographic images of the right upper quadrant are obtained. FINDINGS: EXAM MEASUREMENTS: Liver Length: 16.1 cm Gallbladder Wall: 0.2 cm CBD: obscured by bowel gas Right Kidney: obscured by bowel gas WASHER ASSEMBLER NOTES: Pancreas: mostly obscured by bowel gas Liver: upper limits, coarse echotexture, macronodular contour, no discrete lesion visualized Gallbladder: wnl, partially contracted Evidence for sonographic Collado's sign: No CBD: Obscured by overlying bowel gas Right Kidney: Obscured by overlying bowel gas exam very limited by overlying bowel gas and patient cooperation IMPRESSION: Unremarkable liver, limited exam
[2023-10-29 14:45] LABS: INR 1.3 (<1.2); Prothrombin Time 13.7 sec (10.0-12.5)
[2023-10-29 15:06] LABS: ALT 126 U/L (4-49); AST 145 U/L (17-59); African American GFR (CKD) 80 (>60 ml/min/1.73 sqM); Albumin 3.9 g/dL (3.5-5.0); Albumin/Globulin Ratio 1.1; Alkaline Phosphatase 427 U/L (38-126); Anion Gap 12 mmol/L; Blood Urea Nitrogen 13 mg/dL (9-20); Calcium 9.5 mg/dL (8.4-10.2); Carbon Dioxide 19 mmol/L (22-30); Chloride 100 mmol/L (98-107); Globulin 3.4 g/dL; Glucose 113 mg/dL (74-99); Non-African American GFR(CKD) 69 (>60 ml/min/1.73 sqM); Potassium 4.5 mmol/L (3.5-5.1); Sodium 131 mmol/L (137-145); Total Bilirubin 1.5 mg/dL (0.2-1.3); Total Protein 7.3 g/dL (6.3-8.2)
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
[2023-10-29 15:19] LABS: Basophils # (A) 0.1 k/uL (0-0.2); Basophils % (A) 1 %; Eosinophils # (A) 0.5 k/uL (0-0.7); Eosinophils % (A) 7 %; HCT 35.1 % (39.0-53.0); HGB 11.3 gm/dL (13.0-17.5); Hypochromasia Slight; Lymphocytes # (A) 0.6 k/uL (1.0-4.8); Lymphocytes % (A) 9 %; MCH 31.6 pg (25.0-35.0); MCHC 32.1 g/dL (31.0-37.0); MCV 98.4 fL (80.0-100.0); Mean Platelet Volume 8.5; Monocytes # (A) 0.5 k/uL (0-1.0); Monocytes % (A) 7 %; Neutrophils % (A) 74 %; Platelet Count 163 k/uL (150-450); RBC 3.57 m/uL (4.30-5.90); RDW 13.9 % (11.5-15.5); WBC 6.8 k/uL (3.8-10.6)
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
[2023-10-29 18:22] LABS: Reticulocyte % 3.06 % (0.10-1.80)
[2023-10-29] MEDS: QUEtiapine 25 MG TAB PO SCH (20:49)
[2023-10-29 22:01] LABS: % Iron Saturation 7.65 (15.00-50.00)
--- NOTE | 2023-10-30 06:10 | P.PN ---
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 Patient is Currently presenting to hospital for complaint of black tarry stools. Patient stated that he was following up outpatient with his PCP regarding blood in the stools and she told patient to take Prilosec. Patient was also supposed to follow-up outpatient with hematology oncology for new finding of CT scans findings showing 4 cm mass at the junction of the head and body of the pancreas, suspicious for pancreatic neoplasm and multiple ill-defined densities in the liver suspicious for metastasis. Patient denies any nausea or vomiting. Denies any abdominal pain. Patient is complaining of generalized lethargy and weakness. Patient also having loose stools, states blood in the stools has improved. Because of the symptoms, patient presented to the ER Initial lab work done in the ER showed WBC 5.3, hemoglobin 10.6, platelet count 179, sodium 120, potassium 4.9, BUN 14, creatinine 1.07, glucose 105, total bilirubin 1.6, AST 105, ALT 109 CT lumbar spine done showed no acute lumbar spine fractures, severe spinal canal narrowing at L4 and L5 with multilevel foraminal narrowing on the left through out the lumbar spine Patient admitted to internal medicine service 10/29/2023 Patient is evaluated today had episode of agitation and confusion earlier this AM. He did require haldol and currently refusing to have IV put in place. He was recently diagonosed with pancreas mass and possible liver metastasis and has plans for pancreas MRI outpatient. Oncology consulted this admission and recommending core liver biopsy. He has been off the plavix and aspirin over a week ago taken off by his PCP Dr. Gaines. IR was consulted. He did have his outpatient brain MRI completed at [facility] and will obtain this report. He is having lower back and epigastric pain. Review of Systems Constitutional: Denied any fatigue denied any fever. Cardio vascular: denied any chest pain, palpitations Gastrointestinal: denied any nausea, vomiting, diarrhea Pulmonary: Denied any shortness of breath cough Neurologic denied any new focal deficits All inpatient medications were reviewed and appropriate changes in these medications as dictated in the interval history and assessment and plan. PHYSICAL EXAMINATION: GENERAL: The patient is alert and oriented x3, not in any acute distress. Well d eveloped, well nourished. HEENT: Pupils are round and equally reacting to light. EOMI. No scleral icterus. No conjunctival pallor. Normocephalic, atraumatic. No pharyngeal erythema. No thyromegaly. CARDIOVASCULAR: S1 and S2 present. No murmurs, rubs, or gallops. PULMONARY: Chest is clear to auscultation, no wheezing or crackles. ABDOMEN: Soft, nontender, nondistended, normoactive bowel sounds. No palpable organomegaly. MUSCULOSKELETAL: No joint swelling or deformity. EXTREMITIES: No cyanosis, clubbing, or pedal edema. NEUROLOGICAL: Gross neurological examination did not reveal any focal deficits. SKIN: No rashes. Assessment and plan Pancreatic mass and liver lesions suspicious for malignancy Anemia with reports of black stool outpatient, taken off aspirin and plavix. Has been on PPI Acute hospital delirium and agitation. Will review outpatient MRI taken a few days ago. Pt has been off aspirin and plavix. 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 Dr. María MD I have performed a history and physical examination and medical decision making of this patient, discussed the same with the dictator, and agree with the dictators assessment and plan as written, documented as a scribe. Based on total visit time, I have performed more than 50% of this visit. Objective - Vital Signs Vital signs: Vital Signs Temp 98.6 F 10/30/23 02:04 Pulse 109 H 10/30/23 02:04 Resp 19 10/30/23 02:04 BP 86/51 10/30/23 02:04 Pulse Ox 98 10/30/23 02:04 FiO2 Intake & Output 10/29/23 10/29/23 10/30/23 06:59 18:59 06:59 Intake Total 900 Output Total 200 Balance -200 900 Intake: Oral 900 Output: Emesis 200 Other: Voiding Method Toilet # Voids 3 3 2 - Labs CBC & Chem 7: 10/29/23 14:22 10/29/23 14:22 Labs: Abnormal Lab Results - Last 24 Hours (Table) 10/29/23 10/29/23 10/29/23 Range/Units 14:22 14:22 14:22 RBC 3.57 L (4.30-5.90) m/uL Hgb 11.3 L (13.0-17.5) gm/dL Hct 35.1 L (39.0-53.0) % Lymphocytes # 0.6 L (1.0-4.8) k/uL Retic Count (0.10-1.80) % PT 13.7 H (10.0-12.5) sec INR 1.3 H (<1.2) Sodium 131 L (137-145) mmol/L Carbon Dioxide 19 L (22-30) mmol/L Glucose 113 H (74-99) mg/dL Iron (65-175) UG/DL % Saturation (15.00-50.00) Total Bilirubin 1.5 H (0.2-1.3) mg/dL AST 145 H (17-59) U/L ALT 126 H (4-49) U/L Alkaline Phosphatase 427 H (38-126) U/L Vitamin B12 (200.0-944.0) pg/mL 10/29/23 10/29/23 Range/Units 14:22 14:22 RBC (4.30-5.90) m/uL Hgb (13.0-17.5) gm/dL Hct (39.0-53.0) % Lymphocytes # (1.0-4.8) k/uL Retic Count 3.06 H (0.10-1.80) % PT (10.0-12.5) sec INR (<1.2) Sodium (137-145) mmol/L Carbon Dioxide (22-30) mmol/L Glucose (74-99) mg/dL Iron 29 L (65-175) UG/DL % Saturation 7.65 L (15.00-50.00) Total Bilirubin (0.2-1.3) mg/dL AST (17-59) U/L ALT (4-49) U/L Alkaline Phosphatase (38-126) U/L Vitamin B12 1401.0 H (200.0-944.0) pg/mL Assessment and Plan Time with Patient: Less than 30
[2023-10-30 08:43] LABS: HCT 31.5 % (39.6-50.0); HGB 10.6 g/dL (13.0-17.0); MCH 31.5 pg (27.0-32.0); MCHC 33.7 g/dL (32.0-37.0); MCV 93.5 FL (80.0-97.0); Mean Platelet Volume 10.3 FL (9.5-12.2); NRBC Per 100 WBC 0 X 10*3/uL (0.00-0.01); Platelet Count 159 X 10*3/uL (140-440); RBC 3.37 X 10*6/uL (4.40-5.60); RDW 13.4 % (11.5-14.5); WBC 6.45 X 10*3/uL (4.50-10.00)
[2023-10-30] MEDS: HYDROmorphone 0.5 MG/0.5 ML SYRINGE IVP PRN (09:41)
[2023-10-30 10:00] LABS: ALT 124 U/L (10-49); AST 155 U/L (14-35); Albumin 3.9 g/dL (3.8-4.9); Albumin/Globulin Ratio 1.34 Ratio (1.60-3.17); Alkaline Phosphatase 487 U/L (41-126); BUN/Creat Ratio 8.91 Ratio (12.00-20.00); Blood Urea Nitrogen 9.8 mg/dL (9.0-27.0); Calcium 9.8 mg/dL (8.7-10.3); Carbon Dioxide 19.9 mmol/L (21.6-31.8); Chloride 97 mmol/L (96-109); Globulin 2.9 g/dL (1.6-3.3); Glucose 107 mg/dL (70-110); Potassium 4.5 mmol/L (3.5-5.5); Sodium 131 mmol/L (135-145); Total Bilirubin 1.6 mg/dL (0.3-1.2); Total Protein 6.8 g/dL (6.2-8.2)
[2023-10-30] MEDS: SODIUM FERRIC GLUCONAT-SUCROSE 125 MG in SODIUM CHLORIDE 0.9% 100 ML IVPB SCH (11:24)
--- NOTE | 2023-10-30 12:08 | CT ---
EXAMINATION TYPE: CT biopsy liver DATE OF EXAM: 10/30/2023 10:48 AM CLINICAL INDICATION:Male, 68 years old with history hepatic lesions referred for percutaneous biopsy COMPARISON: 10/11/2023 ATTENDING: Dr. Shah TECHNIQUE: Ultrasound guided percutaneous liver lesion biopsy using coaxial method. Nursing administered 0.5 mg IV Dilaudid to the patient. The patient was monitored by a qualified trained nurse independent of the Radiologist during sedation. FINDINGS: The procedure was explained to the patient. All questions were answered and informed consent was obta ined. The patient was initially placed left lateral decubitus and attempts for planning of a larger area in the right liver lobe. However, this area could not be identified on the noncontrast images. A small 2 cm area at the inferior right liver lobe was targeted in the supine position. The larger le sions are located too high up near the dome for safe biopsy. The overlying skin was marked and prepped using sterile method. Timeout was taken per protocol. Utilizing a lateral approach and following administration 1% local lidocaine anesthesia, a 17/18-gaug e [facility] biopsy system was advanced with needle tip visualized within the inferior right liver lobe. Be am hardening artifact obscured the potential lesion. A single 18-gauge core biopsy was obtained, plac ed in formalin solution, and sent to pathology. The patient was continuously moving and demonstrated inconsistent breath-hold making the procedure very challenging. The patient's movement caused the int roducer to dislodge from the liver. The needle was removed. Other additional ultrasound scanning shows no abnormal fluid collection or ev ident complication. Hemostasis was obtained and a dressing was placed. Patient was taken for postprocedure observation in stable condition. Post procedure CT shows trace strandy hemorrhage overlying the serosal surface of the liver at the bi opsy site. IMPRESSIONS: We attempted to target the larger right liver lobe lesion but this was not apparent on noncontrast CT . A 2 cm lesion inferior right liver lobe was targeted but the procedure was very challenging due to patient movement and inconsistent breath-hold. A single core was obtained. The sampling may have occu rred just at the margin of the lesion. Pathology results pending.
--- NOTE | 2023-10-30 15:32 | P.PN ---
Subjective Progress Note Date: 10/30/23 CHIEF COMPLAINT: Black stools HISTORY OF PRESENT ILLNESS: Patient has had no further black stools. Denies any abdominal pain. Had liver biopsy today. Hemoglobin down from 11.3-10.6 liver enzymes and total bilirubin elevated. Vital stable PHYSICAL EXAM: VITAL SIGNS: Reviewed. GENERAL: no acute distress. ABDOMEN: Soft. Nondistended. Nontender. ASSESSMENT: 1. Anemia with melanotic stools. No longer having any active bleeding. 2. Pancreatic mass 3. Liver lesions PLAN: -Patient scheduled for EGD and colonoscopy with Dr. Man on -Start clear liquid diet and GoLytely bowel prep tomorrow -Okay for regular diet today Physician Comptometrist note has been reviewed by physician. Signing provider agrees with the documented findings, assessment, and plan of care. Objective - Vital Signs Vital signs: Vital Signs Temp 98.0 F 10/30/23 10:40 Pulse 91 10/30/23 12:10 Resp 16 10/30/23 09:51 BP 110/75 10/30/23 12:10 Pulse Ox 96 10/30/23 11:40 FiO2 Intake & Output 10/29/23 10/30/23 10/30/23 18:59 06:59 18:59 Intake Total 900 Balance 900 Intake: Oral 900 Other: # Voids 3 2 3 - Labs CBC & Chem 7: 10/30/23 04:58 10/30/23 04:58 Labs: Abnormal Lab Results - Last 24 Hours (Table) 10/29/23 10/29/23 10/30/23 Range/Units 14:22 14:22 04:58 RBC 3.37 L (4.40-5.60) X 10*6/uL Hgb 10.6 L (13.0-17.0) g/dL Hct 31.5 L (39.6-50.0) % Retic Count 3.06 H (0.10-1.80) % Sodium (135-145) mmol/L Carbon Dioxide (21.6-31.8) mmol/L Anion Gap (4.00-12.00) mmol/L BUN/Creatinine Ratio (12.00-20.00) Ratio Iron 29 L (65-175) UG/DL % Saturation 7.65 L (15.00-50.00) Total Bilirubin (0.3-1.2) mg/dL AST (14-35) U/L ALT (10-49) U/L Alkaline Phosphatase (41-126) U/L Albumin/Globulin Ratio (1.60-3.17) Ratio Vitamin B12 1401.0 H (200.0-944.0) pg/mL 10/30/23 Range/Units 04:58 RBC (4.40-5.60) X 10*6/uL Hgb (13.0-17.0) g/dL Hct (39.6-50.0) % Retic Count (0.10-1.80) % Sodium 131 L (135-145) mmol/L Carbon Dioxide 19.9 L (21.6-31.8) mmol/L Anion Gap 14.10 H (4.00-12.00) mmol/L BUN/Creatinine Ratio 8.91 L (12.00-20.00) Ratio Iron (65-175) UG/DL % Saturation (15.00-50.00) Total Bilirubin 1.6 H (0.3-1.2) mg/dL AST 155 H (14-35) U/L ALT 124 H (10-49) U/L Alkaline Phosphatase 487 H (41-126) U/L Albumin/Globulin Ratio 1.34 L (1.60-3.17) Ratio Vitamin B12 (200.0-944.0) pg/mL
--- NOTE | 2023-10-30 22:32 | P.PN ---
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 Patient is Currently presenting to hospital for complaint of black tarry stools. Patient stated that he was following up outpatient with his PCP regarding blood in the stools and she told patient to take Prilosec. Patient was also supposed to follow-up outpatient with hematology oncology for new finding of CT scans findings showing 4 cm mass at the junction of the head and body of the pancreas, suspicious for pancreatic neoplasm and multiple ill-defined densities in the liver suspicious for metastasis. Patient denies any nausea or vomiting. Denies any abdominal pain. Patient is complaining of generalized lethargy and weakness. Patient also having loose stools, states blood in the stools has improved. Because of the symptoms, patient presented to the ER Initial lab work done in the ER showed WBC 5.3, hemoglobin 10.6, platelet count 179, sodium 120, potassium 4.9, BUN 14, creatinine 1.07, glucose 105, total bilirubin 1.6, AST 105, ALT 109 CT lumbar spine done showed no acute lumbar spine fractures, severe spinal canal narrowing at L4 and L5 with multilevel foraminal narrowing on the left through out the lumbar spine Patient admitted to internal medicine service 10/29/2023 Patient is evaluated today had episode of agitation and confusion earlier this AM. He did require haldol and currently refusing to have IV put in place. He was recently diagonosed with pancreas mass and possible liver metastasis and has plans for pancreas MRI outpatient. Oncology consulted this admission and recommending core liver biopsy. He has been off the plavix and aspirin over a week ago taken off by his PCP Dr. Gaines. IR was consulted. He did have his outpatient brain MRI completed at [facility] and will obtain this report. He is having lower back and epigastric pain. 10/30/2023 Patient evaluated today resting in bed. Had dose of seroquel last night and slept better. Less agitated today. Underwent core liver biopsy. Continues to report lower back pain which is chronic, states norco is helping. Patient supposed to get pancreas MRI outpatient today and will be scheduled this hospital stay. No more reports of black tarry stool. Hemoglobin stable at 10.6. Review of Systems Constitutional: Denied any fatigue denied any fever. Cardio vascular: denied any chest pain, palpitations Gastrointestinal: denied any nausea, vomiting, diarrhea Pulmonary: Denied any shortness of breath cough Neurologic denied any new focal deficits All inpatient medications were reviewed and appropriate changes in these medications as dictated in the interval history and assessment and plan. PHYSICAL EXAMINATION: GENERAL: The patient is alert and oriented x3, not in any acute distress. Well developed, well nourished. HEENT: Pupils are round and equally reacting to light. EOMI. No scleral icterus. No conjunctival pallor. Normocephalic, atraumatic. No pharyngeal erythema. No thyromegaly. CARDIOVASCULAR: S1 and S2 present. No murmurs, rubs, or gallops. PULMONARY: Chest is clear to auscultation, no wheezing or crackles. ABDOMEN: Soft, nontender, nondistended, normoactive bowel sounds. No palpable organomegaly. MUSCULOSKELETAL: No joint swelling or deformity. EXTREMITIES: No cyanosis, clubbing, or pedal edema. NEUROLOGICAL: Gross neurological examination did not reveal any focal deficits. SKIN: No rashes. Assessment and plan Pancreatic mass and liver lesions suspicious for malignancy Anemia with reports of black stool outpatient, taken off aspirin and plavix. Has been on PPI Acute hospital delirium and agitation. Will review outpatient MRI taken a few days ago. Pt has been off aspirin and plavix. 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 Dr. María MD I have performed a history and physical examination and medical decision making of this patient, discussed the same with the dictator, and agree with the dictators assessment and plan as written, documented as a scribe. Based on total visit time, I have performed more than 50% of this visit. Objective - Vital Signs Vital signs: Vital Signs Temp 98.0 F 10/30/23 10:40 Pulse 93 10/30/23 11:55 Resp 16 10/30/23 09:51 BP 98/62 10/30/23 21:07 Pulse Ox 96 10/30/23 11:40 FiO2 Intake & Output 10/30/23 10/30/23 10/31/23 06:59 18:59 06:59 Intake Total 900 Balance 900 Intake: Oral 900 Other: # Voids 2 3 - Labs CBC & Chem 7: 10/30/23 04:58 10/30/23 04:58 Labs: Abnormal Lab Results - Last 24 Hours (Table) 10/30/23 10/30/23 Range/Units 04:58 04:58 RBC 3.37 L (4.40-5.60) X 10*6/uL Hgb 10.6 L (13.0-17.0) g/dL Hct 31.5 L (39.6-50.0) % Sodium 131 L (135-145) mmol/L Carbon Dioxide 19.9 L (21.6-31.8) mmol/L Anion Gap 14.10 H (4.00-12.00) mmol/L BUN/Creatinine Ratio 8.91 L (12.00-20.00) Ratio Total Bilirubin 1.6 H (0.3-1.2) mg/dL AST 155 H (14-35) U/L ALT 124 H (10-49) U/L Alkaline Phosphatase 487 H (41-126) U/L Albumin/Globulin Ratio 1.34 L (1.60-3.17) Ratio Assessment and Plan Time with Patient: Less than 30
[2023-10-31] MEDS: PEG 3350 (236 GM/BTL) + LYTES 4,000 ML BOTTLE PO ONE (08:30)
[2023-10-31 08:53] LABS: BUN/Creat Ratio 14.24 Ratio (12.00-20.00); Blood Urea Nitrogen 24.2 mg/dL (9.0-27.0); Calcium 8.8 mg/dL (8.7-10.3); Carbon Dioxide 25.4 mmol/L (21.6-31.8); Chloride 103 mmol/L (96-109); Glucose 109 mg/dL (70-110); Potassium 3.4 mmol/L (3.5-5.5); Sodium 140 mmol/L (135-145)
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
--- NOTE | 2023-10-31 16:45 | P.PN ---
Subjective Progress Note Date: 10/31/23 CHIEF COMPLAINT: Black stools HISTORY OF PRESENT ILLNESS: Patient has had no further black stools. Denies any abdominal pain. Had liver biopsy yesterday. Potassium 3.4 cr 1.7 PHYSICAL EXAM: VITAL SIGNS: Reviewed. GENERAL: no acute distress. ABDOMEN: Soft. Nondistended. Nontender. ASSESSMENT: 1. Anemia with melanotic stools. No longer having any active bleeding. 2. Pancreatic mass 3. Liver lesions PLAN: -Patient scheduled for EGD and colonoscopy with Dr. Man tomorrow -Start GoLytely bowel prep today -Clear liquid diet for today -N.p.o. after midnight -Medicine service replacing potassium -Continue IV fluids Physician Prosthetics Assistant note has been reviewed by physician. Signing provider agrees with the documented findings, assessment, and plan of care. Objective - Vital Signs Vital signs: Vital Signs Temp 98.0 F 10/31/23 14:22 Pulse 109 H 10/31/23 14:22 Resp 18 10/31/23 14:22 BP 108/65 10/31/23 14:22 Pulse Ox 96 10/31/23 14:22 FiO2 Intake & Output 10/30/23 10/31/23 10/31/23 18:59 06:59 18:59 Other: Voiding Method Toilet # Voids 3 1 1 - Labs CBC & Chem 7: 10/30/23 04:58 10/31/23 04:06 Labs: Abnormal Lab Results - Last 24 Hours (Table) 10/31/23 Range/Units 04:06 Potassium 3.4 L (3.5-5.5) mmol/L Creatinine 1.7 H (0.6-1.5) mg/dL Est GFR (CKD-EPI) 43 L (>=60)
[2023-10-31] MEDS: POTASSIUM CHLORIDE ER 20 MEQ TAB.ER PO ONE ×2 (17:29→18:51)
[2023-10-31 20:14] LABS: Appearance,Urine Cloudy (Clear); Bilirubin,Urine Negative (Negative); Blood,Urine Small (Negative); Color,Urine Yellow; Glucose,Urine (UA) Negative (Negative); Ketones,Urine Negative (Negative); Leukocyte Esterase,Urine Negative (Negative); Mucus,Urine Rare /hpf; Nitrite,Urine Negative (Negative); PH, Urine 5.5 (5.0-8.0); Protein,Urine 1+ (Negative); RBC,Urine 1 /hpf (0-5); Specific Gravity,Urine 1.023 (1.001-1.035); Squamous Epithelial Cell,Urine <1 /hpf (0-4); WBC,Urine 3 /hpf (0-5)
--- NOTE | 2023-11-01 07:04 | P.PN ---
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 Patient is Currently presenting to hospital for complaint of black tarry stools. Patient stated that he was following up outpatient with his PCP regarding blood in the stools and she told patient to take Prilosec. Patient was also supposed to follow-up outpatient with hematology oncology for new finding of CT scans findings showing 4 cm mass at the junction of the head and body of the pancreas, suspicious for pancreatic neoplasm and multiple ill-defined densities in the liver suspicious for metastasis. Patient denies any nausea or vomiting. Denies any abdominal pain. Patient is complaining of generalized lethargy and weakness. Patient also having loose stools, states blood in the stools has improved. Because of the symptoms, patient presented to the ER Initial lab work done in the ER showed WBC 5.3, hemoglobin 10.6, platelet count 179, sodium 120, potassium 4.9, BUN 14, creatinine 1.07, glucose 105, total bilirubin 1.6, AST 105, ALT 109 CT lumbar spine done showed no acute lumbar spine fractures, severe spinal canal narrowing at L4 and L5 with multilevel foraminal narrowing on the left through out the lumbar spine Patient admitted to internal medicine service 10/29/2023 Patient is evaluated today had episode of agitation and confusion earlier this AM. He did require haldol and currently refusing to have IV put in place. He was recently diagonosed with pancreas mass and possible liver metastasis and has plans for pancreas MRI outpatient. Oncology consulted this admission and recommending core liver biopsy. He has been off the plavix and aspirin over a week ago taken off by his PCP Dr. Gaines. IR was consulted. He did have his outpatient brain MRI completed at [facility] and will obtain this report. He is having lower back and epigastric pain. 10/30/2023 Patient evaluated today resting in bed. Had dose of seroquel last night and slept better. Less agitated today. Underwent core liver biopsy. Continues to report lower back pain which is chronic, states norco is helping. Patient supposed to get pancreas MRI outpatient today and will be scheduled this hospital stay. No more reports of black tarry stool. Hemoglobin stable at 10.6. 10/31/2023 Continues to report lower back pain, about 3-4/10. Status post liver core biopsy and plans for pancreas MRI. Patient is also being followed by general surgery, has no further reports of black tarry school, scheduled to undergo endoscopy on . Hemoglobin stable. Review of Systems Constitutional: Denied any fatigue denied any fever. Cardio vascular: denied any chest pain, palpitations Gastrointestinal: denied any nausea, vomiting, diarrhea Pulmonary: Denied any shortness of breath cough Neurologic denied any new focal deficits All inpatient medications were reviewed and appropriate changes in these med ications as dictated in the interval history and assessment and plan. PHYSICAL EXAMINATION: GENERAL: The patient is alert and oriented x3, not in any acute distress. Well developed, well nourished. HEENT: Pupils are round and equally reacting to light. EOMI. No scleral icterus. No conjunctival pallor. Normocephalic, atraumatic. No pharyngeal erythema. No thyromegaly. CARDIOVASCULAR: S1 and S2 present. No murmurs, rubs, or gallops. PULMONARY: Chest is clear to auscultation, no wheezing or crackles. ABDOMEN: Soft, nontender, nondistended, normoactive bowel sounds. No palpable organomegaly. MUSCULOSKELETAL: No joint swelling or deformity. EXTREMITIES: No cyanosis, clubbing, or pedal edema. NEUROLOGICAL: Gross neurological examination did not reveal any focal deficits. SKIN: No rashes. Assessment and plan Pancreatic mass and liver lesions suspicious for malignancy Anemia with reports of black stool outpatient, taken off aspirin and plavix. Has been on PPI Acute hospital delirium and agitation. Resolved, continue with seroquel HS. 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 Dr. María MD I have performed a history and physical examination and medical decision making of this patient, discussed the same with the dictator, and agree with the dictators assessment and plan as written, documented as a scribe. Based on total visit time, I have performed more than 50% of this visit. Objective - Vital Signs Vital signs: Vital Signs Temp 98.7 F 11/01/23 02:00 Pulse 118 H 11/01/23 02:00 Resp 16 11/01/23 02:00 BP 108/69 11/01/23 02:00 Pulse Ox 95 11/01/23 02:00 FiO2 Intake & Output 10/31/23 11/01/23 11/01/23 18:59 06:59 18:59 Intake Total 960 Output Total 400 Balance 560 Intake: Oral 960 Output: Urine 400 Other: Voiding Method Toilet Toilet # Voids 3 1 - Labs CBC & Chem 7: 10/30/23 04:58 10/31/23 04:06 Labs: Abnormal Lab Results - Last 24 Hours (Table) 10/31/23 10/31/23 Range/Units 04:06 15:44 Potassium 3.4 L (3.5-5.5) mmol/L Creatinine 1.7 H (0.6-1.5) mg/dL Est GFR (CKD-EPI) 43 L (>=60) Urine Protein 1+ H (Negative) Urine Blood Small H (Negative) Urine Mucus Rare H (None) /hpf Assessment and Plan Time with Patient: Less than 30
[2023-11-01 07:53] VITALS: RESP 18; TEMP 98.5
[2023-11-01] MEDS ORDERED: PROPOFOL 10 MG/ML 20 ML VIAL IV ONE (11:14)
[2023-11-01] MEDS: SODIUM CHLORIDE 0.9% 500 ML 500 ML IV ONE (11:14)
[2023-11-01] MEDS ORDERED: LIDOCAINE 2% (PF) 20 MG/ML 5 ML VIAL ONE (11:14)
--- NOTE | 2023-11-01 11:50 | P.OP ---
Date of Procedure: 11/01/23 Preoperative Diagnosis: anemia GI bleed Postoperative Diagnosis: antral gastritis Sigmoid colon polyp Rectal polyp Procedure(s) Performed: colonoscopy EGD Anesthesia: MAC Surgeon: Curtis Man Pathology: other (antrum, sigmoid colon polyp, rectal polyp) Condition: stable Disposition: PACU Description of Procedure: the patient's placed on the endoscopy table in the lateral position. He received IV sedation. The gastroscope placed oropharynx passed in the esophagus and stomach. Scope was placed through the pylorus. The first and second portion of the duodenum appeared normal. Scope summer back the antrum this was mildly inflamed. A biopsies performed. Scope was then retroflexed and the remainder the stomach appeared normal. The GE junction was at40 cms. The distal esophagus appeared normal. The proximal esophagus. Scope withdrawn for patient. Next digital rectal exam was performed. There was a possible polyp felt. The possible colonoscope was then placed patient anus passed throughout the entire colon. Ileocecal valve was visually is. The cecum, ascending and transverse colon appeared normal. In the descending; there is mild diverticular changes. In the sigmoid colon there was a polyp seen was removed the cold forcep. The scope summer back the rectum approximately 8 cm from anal verge there was a large bleeding polyp. The polyp was partially removed with the snare. Dislocation of polyp could not be completely removed. The scope was withdrawn for patient. Patient will be scheduled for transanal excision of rectal polyp.
[2023-11-01 12:26] LABS: ALT 85 U/L (4-49); AST 82 U/L (17-59); African American GFR (CKD) >90 (>60 ml/min/1.73 sqM); Albumin 3.1 g/dL (3.5-5.0); Alkaline Phosphatase 482 U/L (38-126); Anion Gap 9 mmol/L; Blood Urea Nitrogen 12 mg/dL (9-20); Calcium 8.9 mg/dL (8.4-10.2); Carbon Dioxide 21 mmol/L (22-30); Chloride 105 mmol/L (98-107); Globulin 3.2 g/dL; Glucose 108 mg/dL (74-99); Non-African American GFR(CKD) 79 (>60 ml/min/1.73 sqM); Potassium 4.5 mmol/L (3.5-5.1); Sodium 135 mmol/L (137-145); Total Bilirubin 1.6 mg/dL (0.2-1.3); Total Protein 6.3 g/dL (6.3-8.2)
[2023-11-01 14:44] VITALS: BP 106/71; PULSE 96
--- NOTE | 2023-11-01 14:48 | P.PN ---
Subjective Progress Note Date: 11/01/23 CHIEF COMPLAINT: Black stools HISTORY OF PRESENT ILLNESS: Patient status post EGD and colonoscopy results reported antral gastritis, sigmoid colon polyp, rectal polyp. Patient had no further black stools. Hemoglobin stable at 10.6 PHYSICAL EXAM: VITAL SIGNS: Reviewed. GENERAL: no acute distress. ABDOMEN: Soft. Nondistended. Nontender. ASSESSMENT: 1. Anemia with melanotic stools. No longer having any active bleeding. 2. Pancreatic mass 3. Liver lesions 4. Rectal polyp noted on colonoscopy PLAN: -Patient scheduled outpatient for transanal excision of rectal polyp -Patient can be discharged from surgical standpoint -Continue to hold aspirin at this time for possible surgery on Sunday outpatient and polypectomy of the sigmoid colon Physician Prism Inspector note has been reviewed by physician. Signing provider agrees with the documented findings, assessment, and plan of care. Objective - Vital Signs Vital signs: Vital Signs Temp 98.5 F 11/01/23 06:56 Pulse 96 11/01/23 13:50 Resp 18 11/01/23 13:50 BP 106/71 11/01/23 13:50 Pulse Ox 100 11/01/23 13:50 FiO2 Intake & Output 10/31/23 11/01/23 11/01/23 18:59 06:59 18:59 Intake Total 960 400 Output Total 400 Balance 560 400 Intake: IV 400 Oral 960 Output: Urine 400 Other: Voiding Method Toilet Toilet Toilet # Voids 3 1 - Labs CBC & Chem 7: 10/30/23 04:58 11/01/23 11:53 Labs: Abnormal Lab Results - Last 24 Hours (Table) 10/31/23 11/01/23 Range/Units 15:44 11:53 Sodium 135 L (137-145) mmol/L Carbon Dioxide 21 L (22-30) mmol/L Glucose 108 H (74-99) mg/dL Total Bilirubin 1.6 H (0.2-1.3) mg/dL AST 82 H (17-59) U/L ALT 85 H (4-49) U/L Alkaline Phosphatase 482 H (38-126) U/L Albumin 3.1 L (3.5-5.0) g/dL Urine Protein 1+ H (Negative) Urine Blood Small H (Negative) Urine Mucus Rare H (None) /hpf
[2023-11-01 15:29] VITALS: BMI 24.3
[2023-11-01 16:33] LABS: HCT 40.2 % (39.0-53.0); HGB 12.3 gm/dL (13.0-17.5); Hypochromasia Moderate; MCHC 30.6 g/dL (31.0-37.0); MCV 101.3 fL (80.0-100.0); Macrocytosis Slight; Mean Platelet Volume 8.6; Platelet Count 137 k/uL (150-450); RBC 3.97 m/uL (4.30-5.90); RDW 13.5 % (11.5-15.5); WBC 7.4 k/uL (3.8-10.6)
--- NOTE | 2023-11-03 23:58 | P.DS ---
Providers Date of admission: 10/28/23 12:08 Attending physician: Lesly Valdez Consults: 10/28/23 11:33 Consult Physician Routine Consulting Provider: Curtis Man Consult Reason/Comments: gi bleed Do you want consulting provider notified?: Yes 10/28/23 13:47 Consult Physician Routine Consulting Provider: Leonardo Coyle Consult Reason/Comments: Pancreatic lesion, mets in the liver Do you want consulting provider notified?: Yes Primary care physician: Gabriela Gaines Hospital Course: Final Diagnosis Pancreatic mass and liver lesions suspicious for malignancy Anemia with reports of black stool outpatient, taken off aspirin and plavix. Has been on PPI EGD shows antral gastritis Acute hospital delirium and agitation. Resolved, continue with seroquel HS. 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 Underwent endoscopy no signs of active bleeding will continue on omeprazole twice a day. Needs to come in outpatient for external polyp removal and recommended to continue off aspirin and plavix at this time, however can resume aspirin 24 post procedure which is scheduled as an outpatient for Sunday. Patient is scheduled to have an MRCP done as an outpatient as well. Was unable to get during this hospital stay due to timing. He will be discharged for further work up outpatient. Educated on the importance of tobacco and alcohol cessation. Patient has a follow up with his PCP Dr. Gaines scheduled for 11/04. Patient to see oncology on november 20. Needs to see Cardiology and general surgery within 1 week. Patient to follow up with neurology as recommended his prior admission. Hospital Course History of present illness; patient 68-year-old gentleman with past medical history significant for CVA, right middle cerebral artery aneurysm with coiling about 13 years ago,right nephrectomy for renal cell carcinoma who was recently admitted to the hospital for strokelike symptoms, neurology eval the patient, recommended aspirin and Plavix and outpatient MRI of brain was recommended. Patient is Currently presenting to hospital for complaint of black tarry stools. Patient stated that he was following up outpatient with his PCP regarding blood in the stools and she told patient to take Prilosec. Patient was also supposed to follow-up outpatient with hematology oncology for new finding of CT scans findings showing 4 cm mass at the junction of the head and body of the pancreas, suspicious for pancreatic neoplasm and multiple ill-defined densities in the liver suspicious for metastasis. Patient denies any nausea or vomiting. Denies any abdominal pain. Patient is complaining of generalized lethargy and weakness. Patient also having loose stools, states blood in the stools has improved. Because of the symptoms, patient presented to the ER Initial lab work done in the ER showed WBC 5.3, hemoglobin 10.6, platelet count 179, sodium 120, potassium 4.9, BUN 14, creatinine 1.07, glucose 105, total bilirubin 1.6, AST 105, ALT 109 CT lumbar spine done showed no acute lumbar spine fractures, severe spinal canal narrowing at L4 and L5 with multilevel foraminal narrowing on the left throughout the lumbar spine Patient admitted to internal medicine service. Consult was also placed to oncology. Status post liver core biopsy and plans for MRCP which will be done on an outpatient basis. Patient had upper and lower endoscopy which revealed antral gastritis and sigmoid colon polyp and rectal polyp. Patient was unable to have the rectal polyp completely removed and will need to go for transanal excision of rectal polyp. He is not having any chest pain, shortness of breath. Denies abdominal pain, no nausea vomiting or diarrhea. He is tolerating diet. He will continue his work up outpatient. Hemoglobin remains stable. Hemodynamically he is stable. Please see medication reconciliation for a list of current medications. Thank you for allowing us to participate in the care of this patient. The impression and plan of care has been dictated by Maria Guadalupe Vasquez, Nurse Practitioner as directed. Dr. María MD I have performed a history and physical examination and medical decision making of this patient, discussed the same with the dictator, and agree with the dictators assessment and plan as written, documented as a scribe. Based on total visit time, I have performed more than 50% of this visit. Patient Condition at Discharge: Fair Plan - Discharge Summary Discharge Rx Participant: No New Discharge Prescriptions: New Omeprazole [PriLOSEC] 20 mg PO AC-BID #28 cap Continue Atorvastatin [Lipitor] 80 mg PO HS #30 tab Melatonin 5 mg PO HS PRN PRN Reason: sleep Discontinued Clopidogrel [Plavix] 75 mg PO DAILY #21 tab Etodolac 200 mg PO Q8H PRN PRN Reason: Pain No Action Thiamine [Vitamin B-1] 100 mg PO QAM Aspirin 325 mg PO QAM Discharge Medication List Melatonin 5 mg PO HS PRN 09/20/23 [History] Atorvastatin [Lipitor] 80 mg PO HS #30 tab 09/25/23 [Rx] Omeprazole [PriLOSEC] 20 mg PO AC-BID #28 cap 11/01/23 [Rx] Aspirin 325 mg PO QAM 11/02/23 [History] Thiamine [Vitamin B-1] 100 mg PO QAM 11/02/23 [History] Follow up Appointment(s)/Referral(s): Leonardo Coyle [STAFF PHYSICIAN] - 11/21/23 4:00 pm (This is Oncologist. PLEASE call to sched an appt) Perez Mondragon MD [STAFF PHYSICIAN] - 1 Week ( Cardiology follow up from prior admission. Office will contact you with your appointment.) Gabriela Gaines MD [Primary Care Provider] - 11/05/23 2:20 pm Curtis Man MD [STAFF PHYSICIAN] - 1 Week Patient Instructions/Handouts: Weakness (DC), Anemia (DC) Activity/Diet/Wound Care/Special Instructions: Transanal excision of rectal polyp scheduled outpatient on 11/05/2023 Hold aspirin and can resume on 11/06/2023 after polyp removal. OR will call you with team to arrive prior to Sunday Need to complete the outpatient MRI of the liver and pancreas Follow up with oncology. Discharge Disposition: HOME SELF-CARE
--- NOTE | 2023-11-05 07:58 | CDI ---
Documentation Clarification Form Date: 11/05/23 From: Ana Kim Admit Date: 10/28/2023 12:08:00 PM Patient Name: Yadiel Escamilla Visit Number: [id number] Discharge Date: 11/01/2023 06:34:00 PM ATTENTION: The Clinical Documentation Specialists (CDI) and [facility] Coding Staff appreciate your assistance in clarifying documentation. Please respond to the clarification below the line at the bottom and electronically sign. The CDI & [facility] Coding staff will review the response and follow-up if needed. Please note: Queries are made part of the Legal Health Record. If you have any questions, please contact the author of this message via ITS. Dr. Irish Daniel, Anemia is documented is in the ED Note, H&P, PNs, surgery consult and DS. Additional specificity regarding the type, acuity of anemia is requested. History/Risk Factors: hyponatremia, suspected liver met, melena, acute hospital delirium, pancreas mass Clinical indicators: Laboratory evaluation shows anemia of 10.6 with approximately 4 g drop over the last 1 month. Pancreatic mass and liver lesions suspicious for malignancy. Anemiawith reports of black stool outpatient, taken off aspirin and Plavix. DOS: 10/27-10/31 Hemoglobin: 10.6, 11.3, 10.6, 12.3 Hematocrit: 32.5, 35.1, 31.5, 40.2 Treatment: EGD w bx and colonoscopy w polypectomies, no transfusions Please clarify the type and acuity of anemia: [ ] Acute blood loss anemia [ ] Acute on chronic blood loss anemia [ ] Chronic blood loss anemia [ ] Iron deficiency anemia [x ] Anemia due to malignancy [ ] Unable to determine [ ] Other, please specify MTDD
== END 2023-11-01 18:34 | disposition home or self-care (01) | DRG 641 ==
LOC: EC 09:16 → 4SSUR 12:08
PROVIDERS: ADMIT Hospitalist; ATTEND Hospitalist
PROC: 05H933Z Insertion of Infusion Device into Right Brachial Vein, Percutaneous Approach (ICD-10-PCS; 2023-10-30)
PROC: 0FB13ZX Excision of Right Lobe Liver, Percutaneous Approach, Diagnostic (ICD-10-PCS; principal; 2023-10-30 09:00)
PROC: 0DBP8ZX Excision of Rectum, Via Natural or Artificial Opening Endoscopic, Diagnostic (ICD-10-PCS; 2023-11-01 10:55)
PROC: 0DBN8ZX Excision of Sigmoid Colon, Via Natural or Artificial Opening Endoscopic, Diagnostic (ICD-10-PCS; 2023-11-01 10:55)
PROC: 0DB78ZX Excision of Stomach, Pylorus, Via Natural or Artificial Opening Endoscopic, Diagnostic (ICD-10-PCS; 2023-11-01 10:55)
DX: E87.1 Hypo-osmolality and hyponatremia (principal); F05 Delirium due to known physiological condition; C78.7 Secondary malignant neoplasm of liver and intrahepatic bile duct; K92.1 Melena; D63.0 Anemia in neoplastic disease; Z28.310 Unvaccinated for COVID-19; K86.9 Disease of pancreas, unspecified; K29.00 Acute gastritis without bleeding; K62.1 Rectal polyp; K63.5 Polyp of colon; M48.061 Spinal stenosis, lumbar region without neurogenic claudication; N28.1 Cyst of kidney, acquired; G89.29 Other chronic pain; M54.50 Low back pain, unspecified; G47.30 Sleep apnea, unspecified; R79.89 Other specified abnormal findings of blood chemistry; Z79.02 Long term (current) use of antithrombotics/antiplatelets; F17.200 Nicotine dependence, unspecified, uncomplicated; Z79.82 Long term (current) use of aspirin; Z79.899 Other long term (current) drug therapy; Z85.528 Personal history of other malignant neoplasm of kidney; Z86.73 Personal history of transient ischemic attack (TIA), and cerebral infarction without residual deficits
CPT/HCPCS: 36410; 36415; 43239; 45380; 45385; 47000; 72131; 76705; 76937; 77012; 80048; 80053; 81001; 82525; 82607; 82728; 82746; 83540; 83550; 83605; 83735; 85025; 85027; 85045; 85610; 88305; 88307; 93005; 96360; 99285

== ENCOUNTER 2023-11-05 08:09 | Day surgery (SDC) | payer MEDICARE ==
[~2023-11-05 08:09] MED LIST changes: -DEXAMETHASONE SOD PHOSPHATE 4 MG/ML 1 ML VIAL IV ONE; +HYDROmorphone 0.5 MG/0.5 ML SYRINGE IVP PRN; +Pre Op ABX Message 1 EACH MISC MISCELLANE ONE
[2023-11-05 09:11] LABS: Glucose,Whole Blood 116 mg/dL (70-110)
[2023-11-05 09:16] VITALS: RESP 16
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
[2023-11-05] MEDS: LACTATED RINGERS 1,000 ML IV SCH (09:25)
[2023-11-05] MEDS: ONDANSETRON 4 MG/2 ML VIAL IVP ONE (09:28)
[2023-11-05] MEDS: DEXAMETHASONE SOD PHOSPHATE 4 MG/ML 1 ML VIAL IV ONE (09:28)
[2023-11-05] MEDS ORDERED: PHENYLEPHRINE 10 MG/ML VIAL ONE (11:04)
[2023-11-05] MEDS ORDERED: fentaNYL (PF) 50 MCG/ML 2 ML AMP ONE (11:04)
[2023-11-05] MEDS ORDERED: PROPOFOL 10 MG/ML 20 ML VIAL IV ONE (11:04)
[2023-11-05] MEDS ORDERED: MIDAZOLAM 2 MG/2 ML VIAL ONE (11:04)
[2023-11-05] MEDS ORDERED: KETOROLAC 15 MG/ML 1 ML VIAL ONE (11:04)
[2023-11-05] MEDS ORDERED: LIDOCAINE 1% INJ 10MG/ML (20 ML MDV) ONE (11:04)
[2023-11-05] MEDS ORDERED: SUCCINYLCHOLINE CHLORIDE 200 MG/10 ML VIAL IV ONE (11:04)
[2023-11-05] MEDS: SODIUM CHLORIDE 0.9% 50 ML with ceFAZolin 2,000 MG IV ONE (11:38)
--- NOTE | 2023-11-05 11:53 | P.OP ---
Date of Procedure: 11/05/23 Preoperative Diagnosis: hemorrhoids Rectal polyp Postoperative Diagnosis: hemorrhoids Rectal polyp Procedure(s) Performed: hemorrhoidectomy and excision of rectal polyp Anesthesia: FRANTZ Surgeon: Curtis Man Estimated Blood Loss (ml): 5 Pathology: other (introduction hemorrhoids, rectal polyp) Condition: stable Disposition: PACU Description of Procedure: the patient's placed on the endoscopy table in the lateral position. He received IV sedation. He then received general endotracheal tube anesthesia. is anus was prepped and draped usual sterile fashion. The anal retractors placed anus. And then the patient was noted to have a lleft lateral hemorrhoidal column. Just below this was a polyp of the mucosa. The hemorrhoidectomy and polyp were excised as one using Harmonic scissors. No other polyps seen. Scope was withdrawn. He is achieved left cautery. Patient top she will present to recovery room in stable condition.
[2023-11-05 12:20] VITALS: TEMP 97.5
[2023-11-05 14:35] VITALS: BP 112/76; PULSE 97
== END 2023-11-05 14:05 | disposition home or self-care (01) ==
LOC: OR 08:09
PROVIDERS: ATTEND Surgery
DX: K64.5 Perianal venous thrombosis (principal); L72.0 Epidermal cyst; E78.5 Hyperlipidemia, unspecified; G89.29 Other chronic pain; N28.9 Disorder of kidney and ureter, unspecified; G47.33 Obstructive sleep apnea (adult) (pediatric); K21.9 Gastro-esophageal reflux disease without esophagitis; F41.9 Anxiety disorder, unspecified; I67.1 Cerebral aneurysm, nonruptured; F10.90 Alcohol use, unspecified, uncomplicated; Z85.528 Personal history of other malignant neoplasm of kidney; Z87.891 Personal history of nicotine dependence; Z87.19 Personal history of other diseases of the digestive system; Z79.899 Other long term (current) drug therapy; Z79.82 Long term (current) use of aspirin; Z86.73 Personal history of transient ischemic attack (TIA), and cerebral infarction without residual deficits
CPT/HCPCS: 46320; 88304; J2250; J0330; J1100; J2405; J0690; J2001; J3010; J1885; J2704; J2371

== ENCOUNTER 2023-11-10 18:51 | Observation (INO) | payer MEDICARE ==
[2023-11-10 20:19] LABS: Basophils # (A) 0.1 k/uL (0-0.2); Basophils % (A) 1 %; Eosinophils # (A) 0.6 k/uL (0-0.7); Eosinophils % (A) 6 %; HCT 36.4 % (39.0-53.0); HGB 11.6 gm/dL (13.0-17.5); Lymphocytes # (A) 0.8 k/uL (1.0-4.8); Lymphocytes % (A) 9 %; MCV 96.8 fL (80.0-100.0); Mean Platelet Volume 8.1; Monocytes # (A) 0.5 k/uL (0-1.0); Monocytes % (A) 5 %; Neutrophils # (A) 7.1 k/uL (1.3-7.7); Neutrophils % (A) 77 %; Platelet Count 195 k/uL (150-450); RBC 3.76 m/uL (4.30-5.90); RDW 14.2 % (11.5-15.5); WBC 9.1 k/uL (3.8-10.6)
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
[2023-11-10 20:31] LABS: INR 1.5 (<1.2); Partial Thromboplastin Time 24.3 sec (22.0-30.0)
[2023-11-10 20:50] LABS: ALT 57 U/L (4-49); AST 71 U/L (17-59); African American GFR (CKD) 52 (>60 ml/min/1.73 sqM); Anion Gap 13 mmol/L; Blood Urea Nitrogen 29 mg/dL (9-20); Calcium 9.5 mg/dL (8.4-10.2); Carbon Dioxide 23 mmol/L (22-30); Chloride 102 mmol/L (98-107); Glucose 102 mg/dL (74-99); Non-African American GFR(CKD) 45 (>60 ml/min/1.73 sqM); Potassium 4.7 mmol/L (3.5-5.1); Sodium 138 mmol/L (137-145); Total Bilirubin 2.8 mg/dL (0.2-1.3); Total Protein 7.9 g/dL (6.3-8.2)
[2023-11-10] MEDS: SODIUM CHLORIDE 0.9% 1,000 ML IV STA (21:07)
[2023-11-10 21:13] LABS: Alkaline Phosphatase 708 U/L (38-126)
[2023-11-10] MEDS: oxyCODONE-APAP 10-325MG 1 EACH TAB PO STA (22:00)
[2023-11-10] MEDS ORDERED: NALOXONE 0.4 MG/ML 1 ML VIAL IV PRN (22:06)
[2023-11-10] MEDS: SODIUM CHLORIDE 0.9% 1,000 ML IV SCH (23:45)
[2023-11-11] MEDS ORDERED: MELATONIN 5 MG TABLET PO PRN (13:52)
[2023-11-11] MEDS ORDERED: HYDROmorphone 1 MG/ML 1 ML SYRINGE IVP PRN (13:56)
[2023-11-11] MEDS ORDERED: ACETAMINOPHEN IV (For NPO) 1,000 MG in EMPTY BAG 1 BAG IVPB PRN (14:26)
[2023-11-11] MEDS: ACETAMINOPHEN TAB 325 MG TAB PO PRN (14:40)
[2023-11-11] MEDS: HALOPERIDOL LACTATE 5 MG/ML 1 ML VIAL IM STA ×2 (14:41→19:18)
[2023-11-11] MEDS: QUEtiapine 25 MG TAB PO STA (14:50)
[2023-11-11] MEDS: QUEtiapine 25 MG TAB PO PRN (15:31)
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
[2023-11-11 18:57] LABS: Glucose,Whole Blood 89 mg/dL (70-110)
[2023-11-11] MEDS ORDERED: traMADol 50 MG TAB PO SCH (21:00)
[2023-11-11] MEDS: PANTOPRAZOLE 40 MG TABLET PO SCH (22:17)
[2023-11-11] MEDS: ATORVASTATIN 80 MG TAB PO SCH (22:17)
[2023-11-11] MEDS: LORazepam 2 MG/ML INJ IV STA (22:50)
[2023-11-12 10:42] LABS: Basophils % (A) 0 %; Eosinophils # (A) 0.2 k/uL (0-0.7); Eosinophils % (A) 2 %; HCT 33.2 % (39.0-53.0); HGB 10.7 gm/dL (13.0-17.5); Hypochromasia Slight; Lymphocytes # (A) 0.6 k/uL (1.0-4.8); Lymphocytes % (A) 7 %; MCH 30.8 pg (25.0-35.0); MCHC 32.1 g/dL (31.0-37.0); MCV 95.8 fL (80.0-100.0); Mean Platelet Volume 8.7; Monocytes # (A) 0.7 k/uL (0-1.0); Monocytes % (A) 7 %; Neutrophils # (A) 7.4 k/uL (1.3-7.7); Neutrophils % (A) 82 %; Platelet Count 154 k/uL (150-450); RBC 3.46 m/uL (4.30-5.90); RDW 14.7 % (11.5-15.5)
[2023-11-12 10:52] LABS: ALT 45 U/L (4-49); AST 65 U/L (17-59); African American GFR (CKD) 86 (>60 ml/min/1.73 sqM); Albumin 3.3 g/dL (3.5-5.0); Alkaline Phosphatase 570 U/L (38-126); Anion Gap 9 mmol/L; Blood Urea Nitrogen 22 mg/dL (9-20); Calcium 9.4 mg/dL (8.4-10.2); Carbon Dioxide 24 mmol/L (22-30); Chloride 109 mmol/L (98-107); Glucose 105 mg/dL (74-99); Magnesium 1.9 mg/dL (1.6-2.3); Non-African American GFR(CKD) 74 (>60 ml/min/1.73 sqM); Potassium 4.4 mmol/L (3.5-5.1); Sodium 142 mmol/L (137-145); Total Bilirubin 3.2 mg/dL (0.2-1.3); Total Protein 6.9 g/dL (6.3-8.2)
[2023-11-12] MEDS: PANTOPRAZOLE 40 MG/10 ML VIAL IVP SCH (11:11)
[2023-11-12] MEDS: HALOPERIDOL LACTATE 5 MG/ML 1 ML VIAL IM STA (12:21)
--- NOTE | 2023-11-12 12:34 | P.PN ---
Subjective Progress Note Date: 11/12/23 CHIEF COMPLAINT: GI bleed HISTORY OF PRESENT ILLNESS: Patient with recent hemorrhoidectomy and excision of rectal polyp on 11/05/2023. Patient presents back to the ER with GI bleed. Per medicine nurse practitioner nursing staff had reported to her that patient did have black emesis. Patient is confused and agitated. He does appear short of breath. He is on room air. Chest x-ray and CT scan of the brain are ordered and pending. Denies any abdominal pain afebrile. He has been mildly tachycardic. WBC 9.0 Hgb 11.6 down to 10.7 platelets 154 sodium 142 potassium 4.4 creatinine 1.02 lactic acid 2.2 down to 1.7 patient denies any abdominal pain. Total bilirubin 3.2 AST 65 ALT 45 alk phos 5 7 liver US on 10/29/2023 gallbladder within normal limits PHYSICAL EXAM: VITAL SIGNS: Reviewed. GENERAL: Well-developed in no acute distress. HEENT: No sclera icterus. Extraocular movements grossly intact. Moist buccal mucosa. Head is atraumatic, normocephalic. ABDOMEN: Soft. Nondistended. Nontender. NEUROLOGIC: confused ASSESSMENT: 1. GI bleed with black emesis and bright red blood per rectum 2. Recent hemorrhoidectomy and excision of rectal polyp on 11/05/2023 3. History of pancreatic mass 4. History of liver lesions status post core biopsy 5. Elevated LFTs and total bilirubin 6. History of gastritis PLAN: -Patient scheduled for EGD and colonoscopy tomorrow with Dr. Man -Start GoLytely bowel prep -Start clear liquid diet -N.p.o. after midnight -Start IV Protonix twice a day -Continue monitor hemoglobin -Continue to monitor for any signs or symptoms of bleeding Physician Dental Professional note has been reviewed by physician. Signing provider agrees with the documented findings, assessment, and plan of care. Objective - Vital Signs Vital signs: Vital Signs Temp 98.4 F 11/11/23 21:00 Pulse 100 11/12/23 11:00 Resp 20 11/12/23 11:00 BP 130/86 11/12/23 11:00 Pulse Ox 99 11/12/23 11:00 FiO2 - Labs CBC & Chem 7: 11/12/23 10:26 11/12/23 10:26 Labs: Abnormal Lab Results - Last 24 Hours (Table) 11/12/23 11/12/23 Range/Units 10:26 10:26 RBC 3.46 L (4.30-5.90) m/uL Hgb 10.7 L (13.0-17.5) gm/dL Hct 33.2 L (39.0-53.0) % Lymphocytes # 0.6 L (1.0-4.8) k/uL Chloride 109 H (98-107) mmol/L BUN 22 H (9-20) mg/dL Glucose 105 H (74-99) mg/dL Total Bilirubin 3.2 H (0.2-1.3) mg/dL AST 65 H (17-59) U/L Alkaline Phosphatase 570 H (38-126) U/L Albumin 3.3 L (3.5-5.0) g/dL
[2023-11-12] MEDS: PEG 3350 (236 GM/BTL) + LYTES 4,000 ML BOTTLE PO ONE (12:59)
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
[2023-11-12] MEDS: LORazepam 2 MG/ML INJ IM PRN (14:49)
--- NOTE | 2023-11-12 16:00 | XR ---
EXAMINATION TYPE: XR chest 1V DATE OF EXAM: 11/12/2023 HISTORY: Shortness of breath. COMPARISON: 09/20/2023 TECHNIQUE: Single view of the chest is submitted. FINDINGS: Demonstrated are scattered senescent parenchymal change. There are coarse upper lobe and perihilar infiltrate suggested. Correlate for underlying pneumonia. P rogress studies are advised. The heart is stable. Hilar and mediastinal structures are within normal limits. Degenerative changes are seen of the dorsal spine. IMPRESSION: 1. There are coarse upper lobe and perihilar infiltrate suggested. Correlate for underlying pneumoni a. Progress studies are advised.
--- NOTE | 2023-11-12 17:15 | CT ---
EXAMINATION TYPE: CT brain wo con CT DLP: 2042 mGycm, Automated exposure control for dose reduction was used. DATE OF EXAM: 11/12/2023 3:26 PM COMPARISON: CT brain from 09/22/2023 CLINICAL INDICATION:Male, 68 years old with history of altered mental status, ams TECHNIQUE: Brain: Axial CT images of the brain were obtained with coronal and sagittal reformats created and rev iewed. Contrast used: None. Oral contrast used: None. FINDINGS: Brain: Images are degraded by motion and consequently difficult to interpret Extra-axial spaces: No abnormal extra-axial fluid collections. Ventricular system: Within normal limits Cerebral parenchyma: No acute intraparenchymal hemorrhage or mass effect. Encephalomalacia near th e precentral gyrus appears similar to the prior study from September. Chronic infarct also suggested at the right parietal lobe posteriorly and inferiorly. The hoover-white junction is well differentiated. Cerebellum: Unremarkable. Mass effect: No evidence of midline shift. Intracranial vasculature: unremarkable Soft tissues: Normal. Calvarium/osseous structures: No depressed skull fracture. Paranasal sinuses and mastoid air cells: Mild scattered paranasal sinus disease. Visualized orbits: Orbital contents are intact. IMPRESSION: No acute intracranial process. Study is limited by motion and other artifact. Chronic right parietal and right frontal/parietal infarcts similar to prior study of September 22, 2023
[2023-11-12] MEDS: LACTATED RINGERS 1,000 ML IV SCH (17:52)
--- NOTE | 2023-11-12 21:06 | XR ---
EXAMINATION TYPE: XR chest 1V DATE OF EXAM: 11/12/2023 COMPARISON: 11/12/2023 HISTORY: Shortness of breath TECHNIQUE: Single frontal view of the chest is obtained. FINDINGS: There is been no change in the coarse interstitial markings with an upper lobe predominanc e however these findings were not present on the prior studies dated 09/20/2023, 10/14/2021 and 12/15/2020 therefore this finding suggests an acute interstitial process. There is no airspace consolidation. There is no pleural effusion or pneumothorax. The heart is normal in size. The osseous structures are intact. IMPRESSION: Diffuse coarse interstitial opacities with upper lobe predominance not seen on multiple prior chest x -rays but unchanged compared to the study done earlier time today. The findings suggest an acute inte rstitial process.
[2023-11-12] MEDS: HALOPERIDOL LACTATE 5 MG/ML 1 ML VIAL IM PRN (21:59)
[2023-11-12] MEDS: SODIUM CHLORIDE 0.9% 1,000 ML IV ONE (23:11)
--- NOTE | 2023-11-12 23:11 | CT ---
EXAM: CT Angiography Chest With Intravenous Contrast CLINICAL HISTORY: ITS.REASON CT Reason: Elevated Dimer TECHNIQUE: Axial computed tomographic angiography images of the chest with intravenous contrast. CTDI is 13.97 mGy and DLP is 376.9 mGy-cm. This CT exam was performed using one or more of the following dose reduction techniques: automated exposure control, adjustment of the mA and/or kV according to patient size, and/or use of iterative reconstruction technique. MIP reconstructed images were created and reviewed. COMPARISON: Chest CT October 28, 2021. FINDINGS: Pulmonary arteries: Positive for bilateral pulmonary emboli in the segmental and subsegmental branches, preferentially involving the left- sided arteries. Aorta: Atherosclerotic changes of the aorta. No thoracic aortic aneurysm. Lungs: Patchy bilateral airspace consolidations, consistent with multilobar pneumonia. Pleural space: Small bilateral pleural effusions. No pneumothorax. Heart: Unremarkable. No cardiomegaly. No significant pericardial effusion. No evidence of RV dysfunction. Mediastinum: Small hiatal hernia. Bones/joints: Degenerative changes of the spine. No acute fracture. No dislocation. Soft tissues: Unremarkable. Lymph nodes: Unremarkable. No enlarged lymph nodes. Liver: Low-attenuation hepatic cystic lesions. Hepatic steatosis. IMPRESSION: 1. Positive for bilateral pulmonary emboli in the segmental and subsegmental branches, preferentially involving the left-sided arteries. 2. Patchy bilateral airspace consolidations, consistent with multilobar pneumonia. 3. Small bilateral pleural effusions. <MYCVCSECTION> Communications: 11/12/23 23:17 Call Doctor Regarding Other, called NP. Vieyra on 11/11 23:16 (-04:00)
[2023-11-12 23:23] LABS: Allen Test Performed? Yes
[2023-11-12 23:39] LABS: Basophils % (A) 1 %; Eosinophils # (A) 0.1 k/uL (0-0.7); Eosinophils % (A) 1 %; HCT 27.4 % (39.0-53.0); Hypochromasia Slight; Lymphocytes # (A) 0.6 k/uL (1.0-4.8); Lymphocytes % (A) 7 %; MCH 30.4 pg (25.0-35.0); MCHC 31.2 g/dL (31.0-37.0); MCV 97.5 fL (80.0-100.0); Mean Platelet Volume 8.4; Monocytes # (A) 0.7 k/uL (0-1.0); Monocytes % (A) 8 %; Neutrophils % (A) 82 %; Platelet Count 137 k/uL (150-450); RBC 2.81 m/uL (4.30-5.90); RDW 14.6 % (11.5-15.5); WBC 8.6 k/uL (3.8-10.6)
[2023-11-12 23:39] LABS: ABG Base Excess -2.8 mmol/L; ABG HCO3 21 mmol/L (21-25); ABG PCO2 29 mmHg (35-45); ABG PH 7.46 (7.35-7.45); ABG PO2 128 mmHg (83-108); ABG TCO2 22 mmol/L (19-24)
[2023-11-12 23:44] LABS: HGB 8.5 gm/dL (13.0-17.5)
[2023-11-13 00:01] LABS: ALT 34 U/L (4-49); AST 52 U/L (17-59); African American GFR (CKD) >90 (>60 ml/min/1.73 sqM); Albumin 2.6 g/dL (3.5-5.0); Albumin/Globulin Ratio 0.9; Alkaline Phosphatase 429 U/L (38-126); Anion Gap 9 mmol/L; Blood Urea Nitrogen 20 mg/dL (9-20); Calcium 8.5 mg/dL (8.4-10.2); Carbon Dioxide 20 mmol/L (22-30); Chloride 108 mmol/L (98-107); Glucose 99 mg/dL (74-99); Non-African American GFR(CKD) 81 (>60 ml/min/1.73 sqM); Potassium 4.4 mmol/L (3.5-5.1); Sodium 137 mmol/L (137-145); Total Bilirubin 2.8 mg/dL (0.2-1.3); Total Protein 5.6 g/dL (6.3-8.2)
--- NOTE | 2023-11-13 00:09 | P.PN ---
Progress Note - Text Progress Note Date: 11/12/23 Called from ER to place IVC filter secondary to PE and inability to treat with anticoagulation due to rectal bleeding. Reviewed CT PE - no heart strain noted, bilateral segmental and sub segmental thrombus with mulilobular pneumonia. Patient's vital signs are stable and saturations 99% but tachypnic likely due to pneumonia and PE. Discussed with ER that emergent filter will not help with current issues. Continue respiratory support and if concern for PE and worsening oxygenation then would consider anticoagulation, transfuse for bleeding and possible mechanical thrombectomy. If bleeding significant then General surgery to attempt to control versus IR embolization. We will place IVC filter in am.
[2023-11-13] MEDS ORDERED: LORazepam 2 MG/ML INJ IV PRN ×3 (00:14)
[2023-11-13] MEDS: SODIUM CHLORIDE 0.9% 1,000 ML IV ONE (01:09)
--- NOTE | 2023-11-13 01:33 | XR ---
EXAM: XR Chest, 1 View CLINICAL HISTORY: ITS.REASON XR Reason: Tube placement TECHNIQUE: Frontal view of the chest. COMPARISON: Chest November 12, 2023. FINDINGS: Lungs: Patchy perihilar opacities, concerning for pneumonia. Pleural space: Trace bilateral pleural effusions. No pneumothorax. Heart: Unremarkable. No cardiomegaly. Mediastinum: Unremarkable. Normal mediastinal contour. Bones/joints: Unremarkable. No acute fracture. Tubes, lines and devices: There is a catheter coiled in the oropharynx, which may represent a feeding tube. Correlate for proper positioning. If this is a feeding tube, repositioning and reimaging is required prior to use. Endotracheal tube terminates in the trachea. IMPRESSION: 1. Catheter coiled in the oropharynx, which may represent a feeding tube. Correlate for proper positioning. If this is a feeding tube, repositioning and reimaging is required prior to use. 2. Patchy perihilar opacities, concerning for pneumonia.
[2023-11-13] MEDS: MIDAZOLAM 1 MG/ML 5 ML VIAL IV STA (02:01)
--- NOTE | 2023-11-13 02:05 | P.PN ---
Progress Note - Text Progress Note Date: 11/13/23 I was notified of patient's declining condition after I was paged early this morning. I spoke with patient's bedside nurse Joie and MEAT BLENDER Renan from pulmonary team. I was updated that patient is having active bleeding with bright red blood per rectum and a subsequent drop in Hgb from 10.7 to 8.5, and that plan was to intubate the patient & tranfuse 1 unit. Earlier in the evening I ordered a CTA of chest which revealed bilateral PE, no apparent R-Heart strain, possible multifocal pneumonia. Antibiotic coverage was started. Vascular was consulted following positive PE study, Renan from pulmonary explained vascular's recommendation was to anticoagulate the pt, however in light of the patient actively GI bleeding and the lack of inpatient GI services available at [facility] it was felt that patient would be best served by transferring to tertiary center with inpatient GI services in addition to other necessary compliment of specialists. Following this conversation I called Dr Garcia, after discussing the patient he indicated that his opinion was that transferring the patient is appropriate. Initially I was told that we were unable to get in contact with patient's family, however shortly thereafter I was informed that patient's family was reached, and they were agreeable to transfer and requested the patient remain a full code. Shortly thereafter at 1:20 AM I received a call from the [facility] Transfer team, I spoke with a Dr Real Pimentel whom has agreed to accept the patient as a transfer to their Surgical ICU at [facility]. At the conclusion of said conversation I contacted patient's bedside nurse Joie and informed her that [facility] has accepted the patient as a transfer. -Celso DANP-C
[2023-11-13 02:14] LABS: Appearance,Urine Clear (Clear); Bacteria,Urine Occasional /hpf; Bilirubin,Urine Negative (Negative); Blood,Urine Trace (Negative); Color,Urine Yellow; Glucose,Urine (UA) Negative (Negative); Hyaline Casts,Urine 3 /lpf (0-2); Ketones,Urine 1+ (Negative); Leukocyte Esterase,Urine Negative (Negative); Mucus,Urine Rare /hpf; Nitrite,Urine Negative (Negative); PH, Urine 5.5 (5.0-8.0); Protein,Urine Negative (Negative); RBC,Urine 6 /hpf (0-5); Urobilinogen,Urine <2.0 mg/dL (<2.0); WBC,Urine 2 /hpf (0-5)
[2023-11-13 02:25] LABS: Specific Gravity,Urine >1.050 (1.001-1.035)
--- NOTE | 2023-11-13 03:03 | XR ---
EXAM: XR Chest, 1 View CLINICAL HISTORY: ITS.REASON XR Reason: line placement TECHNIQUE: Frontal view of the chest. COMPARISON: No relevant prior studies available. IMPRESSION: Central line in good position.
[2023-11-13 03:04] VITALS: TEMP 98.1
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
[2023-11-13 03:44] VITALS: BP 97/70; PULSE 92; RESP 22
[2023-11-13] MEDS: PIPERACILLIN-TAZOBACTAM 3.375 GM in SODIUM CHLORIDE 0.9% 100 ML IVPB STA (03:49)
[2023-11-13] MEDS ORDERED: CHLORHEXIDINE GLUCONATE 15 ML CUP MUCOUS MEM SCH (09:00)
[2023-11-13] MEDS ORDERED: THIAMINE 100 MG TAB PO SCH (09:00)
== END 2023-11-13 03:34 | disposition other institution (70) ==
LOC: EC 18:51 → 3SCARD 22:06 → 4SSUR 11-12 10:24 → 2SICU 11-12 23:27
PROVIDERS: ADMIT Student in an Organized Health Care Education/Training Program; ATTEND Student in an Organized Health Care Education/Training Program
DX: K92.2 Gastrointestinal hemorrhage, unspecified (principal); R10.9 Unspecified abdominal pain; M54.50 Low back pain, unspecified; K21.9 Gastro-esophageal reflux disease without esophagitis; E78.5 Hyperlipidemia, unspecified; G47.33 Obstructive sleep apnea (adult) (pediatric); N17.9 Acute kidney failure, unspecified; D62 Acute posthemorrhagic anemia; E80.6 Other disorders of bilirubin metabolism; R41.82 Altered mental status, unspecified; J96.01 Acute respiratory failure with hypoxia; E86.0 Dehydration; E87.20 Acidosis, unspecified; F41.9 Anxiety disorder, unspecified; F10.90 Alcohol use, unspecified, uncomplicated; I26.94 Multiple subsegmental thrombotic pulmonary emboli without acute cor pulmonale; Z87.19 Personal history of other diseases of the digestive system; Z79.899 Other long term (current) drug therapy; Z79.82 Long term (current) use of aspirin; Z99.89 Dependence on other enabling machines and devices; Z86.010 Personal history of colon polyps; Z87.891 Personal history of nicotine dependence; Z86.73 Personal history of transient ischemic attack (TIA), and cerebral infarction without residual deficits; Z85.528 Personal history of other malignant neoplasm of kidney; Z90.5 Acquired absence of kidney
CPT/HCPCS: 96376; 36430; 96361 ×3; 96372 ×2; 96374; 96375; 99285; 36415; 36600; 94002; 93005 ×2; 86900; 86901; 85379; 83880; 80053 ×2; 82140; 82805; 83605 ×2; 83735; 84484 ×2; 85025 ×2; 85610; 85730; 86850; 86920; 81001; 87040; 71045 ×2; 70450; 71275; G0378 ×5; P9016; J2060 ×2; J1630 ×2; J2250; J2704; C9113; Q9967